=== PATIENT | male | born 1960 | race Caucasian/White ===

== ENCOUNTER 2019-08-26 10:19 | Inpatient (IN) | payer MEDICARE, SELFPAY ==
[2019-08-26 10:20] VITALS: BP 125/87; PULSE 97; RESP 18; TEMP 36.8; O2SAT 98; BMI 32.3
--- NOTE | 2019-08-26 10:39 | EKG12_ITS ---
Test Reason : SOB Blood Pressure : / mmHG Vent. Rate : 072 BPM Atrial Rate : 072 BPM P-R Int : 176 ms QRS Dur : 086 ms QT Int : 410 ms P-R-T Axes : 044 040 021 degrees QTc Int : 448 ms Normal sinus rhythm with sinus arrhythmia Nonspecific ST & T Wave Abnormality Abnormal ECG Confirmed by DEANDRA MCINTOSH, LIONEL ([id number]), commissioning editor TALAT WILLIAM ([id number]) on 08/31/2019 11:15:50 AM Referred By: DC Confirmed By:LIONEL LIRIANO MD
[2019-08-26 11:06] LABS: Absolute Lymphocyte Count 0.93 X10^3/uL (0.83-4.51); Absolute Neutrophil Count 9.5 X10^3/uL (2.0-7.7); Basophil# 0.02 X10^3/uL; Basophil% 0.2 % (0-1); Lymphocyte # 0.93 X10^3/ul (4.0); Lymphocyte % 8.5 % (19-41); Mean Corp Hgb Conc 34.1 g/dL (32-36); Mean Corpuscular Hgb 29.3 pg (27.0-32.0); Mean Corpuscular Volume 85.9 fL (80-94); Monocyte# 0.46 X10^3/uL; Monocyte% 4.2 % (0-10); NRBC Flagged by Analyzer 0 % (0-5); Neutrophil % 86.3 % (47-70); Platelet Count 320 K/mm3 (150-450); RBC Distribution Width CV 12.8 % (11.6-14.6); RBC Distribution Width SD 39.6 fl (35.1-43.9); Red Blood Count 5.12 M/mm3 (4.6-6.2)
[2019-08-26] MEDS: Ondansetron 4 MG/2 ML Vial IV (11:06)
[2019-08-26] MEDS: Ketorolac 15 MG/ML Vial IV (11:06)
[2019-08-26] MEDS: 0.9% Normal Saline 1,000 ML 1000 ML IV (11:06)
--- NOTE | 2019-08-26 11:21 | RAD_ITS ---
STUDY: X-RAY CHEST REASON FOR EXAM: Male, 58 years old. SOB, LOST TASTE AND SMELL, CHILLS DIARRHEA TECHNIQUE: Single AP portable view of the chest. COMPARISON: None. FINDINGS: The lungs are clear and expanded. There is no demonstrated pleural abnormality. Normal size heart. Normal mediastinum and keturah. Normal visualized pulmonary arteries. Normal visualized aortic arch and descending thoracic aorta. Normal visualized thoracic spine. Normal visualized ribs, clavicles, and shoulders. There is no demonstrated abnormality of the visualized soft tissue structures of the upper abdomen. RAD/Chest 1 View (Portable) IMPRESSION: No acute pulmonary process Electronically Signed: Nick St MD at 11:43 EDT , Service support ,
[2019-08-26 11:25] LABS: AST(SGOT) 14 U/L (15-37); Alanine Aminotransfer ALT/SGPT 19 U/L (16-61); Alkaline Phosphatase 104 U/L (45-117); Anion Gap 10 (5-15); BUN 14 mg/dL (7-18); BUN/Creat Ratio 12.8 RATIO (10-20); Calcium,Total 9.5 mg/dL (8.5-10.1); Chloride 105 mmol/L (98-107); Creatinine, Serum 1.09 mg/dL (0.70-1.30); EST Glomerular Filtration Rate 73 mL/min (>60); Est Glom Filt Rate - Afr Amer 88 mL/min (>60); Estimated Creatinine Clearance 65.04 ml/min; Glucose 140 mg/dL (74-106); Potassium 3.5 mmol/L (3.5-5.1); Sodium Level 138 mmol/L (136-145)
--- NOTE | 2019-08-26 12:21 | ED.DCSUM_ITS ---
- ER Visit Summary Date of Service: 08/26/19 Chief Complaint: Sick History of Present Illness: The patient is a 58 M with subjective fever, chills, sneezing, cough, shortness of breath, diarrhea, and change in taste and smell. Symptoms started yesterday. No known coronavirus exposure. He does have a hist ory of pneumonia and required a ventilator for this in the past. No other lung disease. No heart disease or liver disease. No immune compromise. No recent antibiotics or hospitalization. No history of C. difficile. No bleeding. Physical Examination: Afebrile and vital signs unremarkable. Patient alert and oriented. No acute distress. Heart regular. No respiratory distress. Skin appears normal. Test Results: EKG showed sinus rhythm at a rate of [address] and T wave changes. CBC normal. CMP unremarkable. Troponin normal. COVID test is pending. Chest x-ray showed nothing acute. Emergency Department Course and Treatment: Patient had coronavirus precautions. He was monitored. He did not require oxygen. He was treated with IV fluids, Toradol, Zofran. Work-up was unremarkable and/or reassuring. His symptoms are consistent with COVID-19. Testing results are pending. Patient will maintain COVID precautions. Return for any new or worsening issues, shortness of breath, cyanosis, confusion, or any other concerns. He was prescribed Zofran and Imodium. He may use [id number] remedies for his symptoms. Prior to discharge, the patient was complaining of increased abdominal pain. He was treated with pain medication and will check a CT abdomen and pelvis. This showed ileus versus early small bowel obstruction. No other solid organ changes. Nothing else acute. Given his symptoms and findings, contact the hospitalist to admit. Treatment Plan: As above Disposition: Admit Impression: Suspected COVID-19 infection, abdominal pain This note was generated with [employer] dictation software. It may contain incorrect words, spelling, and punctuation that were not noted in review of the chart prior to signing ED Disposition - Plan for ED Patient: Instructions: ED Diarrhea Viral Prescriptions: Loperamide [Imodium] 2 mg PO Q2H PRN PRN #20 cap PRN Reason: Diarrhea Prescription Printed Benzonatate [Tessalon Perle] 100 mg PO 4X/DAY PRN PRN #20 cap PRN Reason: Cough Prescription Printed Referrals: Bebo Cole MD [Primary Care Provider] -
--- NOTE | 2019-08-26 12:25 | ED.DEP ---
ED Disposition - Plan for ED Patient: Instructions: ED Diarrhea Viral Prescriptions: Loperamide [Imodium] 2 mg PO Q2H PRN PRN #20 cap PRN Reason: Diarrhea Prescription Printed Benzonatate [Tessalon Perle] 100 mg PO 4X/DAY PRN PRN #20 cap PRN Reason: Cough Prescription Printed Referrals: Bebo Cole MD [Primary Care Provider] -
--- NOTE | 2019-08-26 12:45 | CT_ITS ---
STUDY: CT ABDOMEN AND PELVIS WITHOUT CONTRAST REASON FOR EXAM: Male, 58 years old. FEVER, COUGH, SOB, LOST TASTE/SMELL, CHILLS, DIARRHEA RADIATION DOSAGE (If Supplied By Facility): CTDIvol = ( 17.775 ) mGy, DLP = ( 1013.39 ) mGycm TECHNIQUE: Transaxial images were obtained from the dome of the diaphragm to the symphysis pubis without oral contrast, and without intravenous contrast. Sagittal and coronal images were reconstructed. Individualized dose optimization techniques were used for this CT. COMPARISON: None. FINDINGS: The visualized lung bases are unremarkable. The visualized portions of the heart are within normal limits. Normal liver. There are multiple gallstones. Normal spleen. Normal pancreas. Normal bilateral adrenal glands. Normal right kidney. Normal left kidney. Normal visualized stomach. Multiple distended fluid-filled small bowel loops are noted consistent with ileus/early obstruction. A transition point is not clearly identified but appears to be within the jejunum. Normal colon. There is non-visualization of the appendix. There is diffuse atherosclerotic calcification of the abdominal aorta, without a demonstrated aneurysm. Normal inferior vena cava. Normal retroperitoneum. Normal urinary bladder. There are prostatic calcifications. There is a small umbilical hernia containing fat. There are diffuse degenerative changes of the visualized lumbar spine, and pelvis. CT/Abdomen/Pelvis W IV Cont ONLY IMPRESSION: Borderline distended fluid-filled small bowel loops and air-fluid levels consistent with ileus/early obstruction. Transition point not clearly identified but appears to be within the jejunum No suspicious solid organ abnormality No free intraperitoneal fluid, air, or suspicious adenopathy Electronically Signed: Nick St MD at 13:16 EDT , Service support ,
[2019-08-26] MEDS: HYDROmorphone 1 MG/ML Syringe IV (12:50)
[2019-08-26 13:24] VITALS: BP 167/84; PULSE 59; RESP 18; O2SAT 99
[2019-08-26] MEDS: Morphine 4 MG/ML Syringe IV (14:15)
[2019-08-26 14:17] VITALS: BP 158/83; PULSE 67; RESP 18; TEMP 36.7; O2SAT 98
[2019-08-26 15:10] VITALS: BP 145/86; PULSE 56; RESP 16; TEMP 37.4; O2SAT 100
--- NOTE | 2019-08-26 15:12 | PCM.HP.STD ---
<Mason Whitlock - Last Filed: 08/26/19 15:12> Problem List (1) Viral URI Status: Acute (2) Ileus Status: Acute (3) Fibromyalgia Status: Chronic History of Present Illness Date of Admission: 08/26/19 Chief Complaint: malaise The patient is a 58 year old M with pmhx of fibromyalgia who presents with multiple complaints suspicious for covid19. The patient started feeling unwell yesterday and began having sinus congestion, non productive cough, SOB, sneezing, nausea with no vomiting, diarrhea, abdominal pain, loss of taste and smell, and hot and cold flashes. The patient denies sick contacts. He had no symptoms prior to yesterday. He came to the ER and despite his SOB has no hypoxia and no infiltrate on cxr. He has abdominal pain and CT abd shows ileus. He has had multiple liquid only BMs. He will be admitted for suspected ileus. He does not smoke cigarettes but does smoke medical marijuana for pain for fibromyalgia.[] Past Medical History Past Medical History (Chronic Problems): Chronic Problems Fibromyalgia (Chronic) Allergies levofloxacin [From Levaquin] Adverse Reaction (Verified 08/26/19 11:08) Other Home Medications: Ambulatory Orders Medication Instructions Recorded Pregabalin [Lyrica] 300 mg PO BID 04/16/13 Psychiatric History: No pertinent psych hx Lives: With Family Smoking Status: Never smoker Tobacco Use: Non-smoker Alcohol: None Drugs: Marijuana Review of Systems Constitutional: Reports: Chills, Fever, Malaise. Denies: Weight Change HEENT: Reports: Sinus Congestion, - - loss of taste and smell. Denies: Head Aches, Sinus Drainage Cardiovascular: Denies: Chest Pain, Heaviness, Light Headedness, Palpitations Respiratory: Reports: Cough, Shortness of Breath, Shortness of breath at rest, Shortness of breath upon exertion. Denies: Hemoptysis, Sputum production, Wheezing Gastrointestinal: Reports: Abdominal Pain, Diarrhea, Nausea. Denies: Vomiting Genitourinary: Denies: Dysuria Musculoskeletal: Denies: Joint Pain, Joint Tenderness Skin: Denies: Rash, Wounds Neurological: Denies: Numbness, Tingling, Focal weakness Psychiatric: Denies: Anxiety, Depression, Homicidal Ideations, Suicidal Ideations Hematologic/ Lymphatic: Denies: Easy Bruising, Easy Bleeding VTE Information - Inpt Only VTE Present on Admission: No VTE Mechan Device Prophylaxis: None VTE Pharm Prophylaxis ordered?: Yes Patient Problems: Active and Suspected Problems Viral URI (Acute) Ileus (Acute) - Physical Exam Vitals/I&O's: Vital Signs Temp Pulse Resp BP Pulse Ox 98.1 F 67 18 158/83 H 98 08/26/19 14:17 08/26/19 14:17 08/26/19 14:17 08/26/19 14:17 08/26/19 14:17 Oxygen Delivery Method Room Air Weight: 200 lb Body Mass Index (BMI) 32.3 Intake and Output for Last 24 Hours 08/24/19 08/25/19 08/26/19 23:59 23:59 23:59 Intake Total 1000 / 1000 Balance 1000 / 1000 General: Alert, Oriented x3, Cooperative HEENT: Atraumatic, PERRLA, EOMI, Normocephalic Neck: Supple, No JVD, Negative Carotid Bruits Lungs: Clear to auscultation, Normal air movement Cardiovascular: Regular rate, No murmurs Abdomen: Soft, Non Tender, Bowel Sounds Not Present, Tender Extremities: No edema, Capillary Refill Less than 3 Seconds Skin: No rashes, No breakdown Musculoskeletal: No Tenderness to Palpation of Joints or Extremities Neurological: Cranial nerves II-XII grossly intact Psych/Mental Status: Normal Affect, Appropriate Laboratory Results 08/26/19 10:33: WBC 11.0, RBC 5.12, Hgb 15.0, Hct 44.0, MCV 85.9, MCH 29.3, MCHC 34.1, RDW Std Deviation 39.6, RDW Coeff of Francisco 12.8, Plt Count 320, MPV 9.0, Immature Gran % (Auto) 0.800, Neut % (Auto) 86.3 H, Lymph % (Auto) 8.5 L, Millard % (Auto) 4.2, Eos % (Auto) 0.0, Baso % (Auto) 0.2, Absolute Neuts (auto) 9.5 H, Absolute Lymphs (auto) 0.93, Nucleated RBC % 0 08/26/19 10:33: Sodium 138, Potassium 3.5, Chloride 105, Carbon Dioxide 23.0, Anion Gap 10, BUN 14, Creatinine 1.09, Estim Creat Clear Calc 65.04, Est GFR (MDRD) Af Amer 88, Est GFR (MDRD) Non-Af 73, BUN/Creatinine Ratio 12.8, Glucose 140 H, Calcium 9.5, Total Bilirubin 0.90, AST 14 L, ALT 19, Alkaline Phosphatase 104, Troponin I < 0.015, Total Protein 8.0, Albumin 4.0, Globulin 4.0, Albumin/Globulin Ratio 1.0 08/26/19 10:50: COVID-19 (BRY) Pending Current Medications Iopamidol (Contrast Allergy Check) 0 ml IV X1 HOANG Assessment/Plan All Active Problems Viral URI (Acute) Ileus (Acute) 1. Ileus - NPO. AM KUB. IV fluids. Anti emetics. 2. Covid 19 - rapid test pending however presumed + due to symptomology. no fever/leukcoytosis. No hypoxia tho he c/o sob. monitor overnight. supportive measures. cohort pt with covid precautions. 3. Fibromyalgia - hold orals. DVT ppx: lovenox This patient was seen by Mason Whitlock PA-C under the supervision of Dr. Brito. <Rebekah Brito - Last Filed: 08/26/19 19:48> History of Present Illness The patient is a 58 year old M [] Past Medical History Allergies levofloxacin [From Levaquin] Adverse Reaction (Verified 08/26/19 11:08) Other - Physical Exam Vitals/I&O's: Vital Signs Temp Pulse Resp BP Pulse Ox 99.3 F H 56 L 16 145/86 H 100 08/26/19 15:10 08/26/19 15:10 08/26/19 15:10 08/26/19 15:10 08/26/19 15:10 Oxygen Delivery Method Room Air Weight: 87.1 kg Body Mass Index (BMI) 30.9 Intake and Output for Last 24 Hours 08/24/19 08/25/19 08/26/19 23:59 23:59 23:59 Intake Total 1720 / 1720 Balance 1720 / 1720 Laboratory Results 08/26/19 10:33: WBC 11.0, RBC 5.12, Hgb 15.0, Hct 44.0, MCV 85.9, MCH 29.3, MCHC 34.1, RDW Std Deviation 39.6, RDW Coeff of Francisco 12.8, Plt Count 320, MPV 9.0, Immature Gran % (Auto) 0.800, Neut % (Auto) 86.3 H, Lymph % (Auto) 8.5 L, Millard % (Auto) 4.2, Eos % (Auto) 0.0, Baso % (Auto) 0.2, Absolute Neuts (auto) 9.5 H, Absolute Lymphs (auto) 0.93, Nucleated RBC % 0 08/26/19 10:33: Sodium 138, Potassium 3.5, Chloride 105, Carbon Dioxide 23.0, Anion Gap 10, BUN 14, Creatinine 1.09, Estim Creat Clear Calc 65.04, Est GFR (MDRD) Af Amer 88, Est GFR (MDRD) Non-Af 73, BUN/Creatinine Ratio 12.8, Glucose 140 H, Calcium 9.5, Total Bilirubin 0.90, AST 14 L, ALT 19, Alkaline Phosphatase 104, Troponin I < 0.015, Total Protein 8.0, Albumin 4.0, Globulin 4.0, Albumin/Globulin Ratio 1.0 08/26/19 10:50: COVID-19 (BRY) Pending 08/26/19 10:55: B-Natriuretic Peptide 15.4 08/26/19 17:30: Fibrinogen 500 H, D-Dimer Quant (PE/DVT) 0.79 H* 08/26/19 17:30: Lactate Dehydrogenase 136, Total Creatine Kinase 53, Troponin I < 0.015, C-React Prot Ext Range 8.72 H 08/26/19 17:30: Lactic Acid Cancelled 08/26/19 17:30: Procalcitonin Pending Current Medications Bisacodyl (Dulcolax) 10 mg RECTAL DAILY HOANG Enoxaparin Sodium (Lovenox) 30 mg SC BID HOANG Sodium Chloride () 250 mls @ 15 mls/hr IV .[id number] PRN PRN Reason: Saline Flush Sodium Chloride () 250 mls @ 15 mls/hr IV .[id number] PRN PRN Reason: Additional IVPB Infusion Polyethylene Glycol (Miralax) 17 gm PO DAILY HOANG Pregabalin (Lyrica) 300 mg PO BID HOANG Senna/Docusate Sodium (Senokot-S, Cathie-Colace) 2 tablet PO BID PRN PRN PRN Reason: CONSTIPATION Sodium Chloride () 10 - 40 ml IV UD PRN PRN Reason: SALINE FLUSH Assessment/Plan This patient was seen in conjunction with FLOYD De Leon. I have independently interviewed and examined the patient and reviewed pertinent historical, laboratory, and other data. Please refer to FLOYD De Leon note for his patient's presentation, findings, and recommendations. I have reviewed and his note and concur with his documentation 58-year-old male with past medical history of fibromyalgia, chronic neuropathy, status post implanted morphine pump who comes in with complaints of fever, chills, diarrhea, loss of taste and smell. Patient denies any sick contacts. He lives with his mother. He admits to having some sinus congestion, cough, shortness of breath. His work-up in the ED was significant for abdominal discomfort in which CT of the abdomen with multiple gallstones, multiple distended fluid-filled small bowel loops consistent with ileus/early obstruction. Patient however had a bowel movement when he was admitted to the floor. At time of being seen, he stated that he was feeling a little better. Physical Exam: Gen: Comfortable, not pale, not jaundiced CVS:HS I +II, regular, no murmurs RESP: Clinically clear to auscultation GI: BS present and normal, soft, nontender, no palpable organs EXT:No edema ASSESSMENT: 1. Ileus secondary to chronic narcotic use 2. Possible COVID-19 infection 3. Fibromyalgia/chronic pain syndrome Plan: Continue in COVID isolation precautions Start on clear liquid diet and advance diet as tolerated Start on a bowel regimen Continue on home pain regimen Would avoid use of narcotics in the hospital as patient has a morphine pump already Inpatient E&M: 93920 Init Hosp L2
[2019-08-26 15:34] VITALS: BMI 30.9; BMI 31.0
[2019-08-26 16:15] LABS: BNP,B-Type NATRIURETIC PEPTIDE 15.4 pg/mL (0-100)
[2019-08-26 18:27] LABS: Fibrinogen 500 mg/dl (203-444)
[2019-08-26 18:31] LABS: CPK Total, Creatine Kinase 53 U/L (39-308); CRP 8.72 mg/L (0.0-3.0); LDH 136 U/L (87-241)
[2019-08-26 19:07] LABS: D-Dimer Quantitative (DVT/PE) 0.79 FEU/ug/m (0.27-0.49)
[2019-08-26] MEDS: Polyethylene Glycol 3350 17 GM PACKET PO (19:40)
[2019-08-26] MEDS: Senna/Docusate Sodium 1 Tablet 2 TABLET PO (19:40)
[2019-08-26] MEDS: 0.9% Saline Lock 10 ML Syringe IV (19:41)
[2019-08-26] MEDS: Bisacodyl 10 MG Suppository RECTAL (19:41)
[2019-08-26 19:45] VITALS: BP 146/82; PULSE 74; RESP 15; TEMP 37.7; O2SAT 99
[2019-08-26 20:31] LABS: Lactic Acid 3.3 mmol/L (0.4-1.9)
--- NOTE | 2019-08-26 20:44 | PCM.PN.BLA ---
Progress Note Notified of lactic acid of 3.3 of probable covid patient. Trend. Procalcitonin is pending. STROKE Vital Signs/Narrative: Vital Signs Temp Pulse Resp BP Pulse Ox 08/26/19 19:45 99.8 F H 74 15 146/82 H 99
[2019-08-26 20:49] LABS: Procalcitonin < 0.04 ng/mL (0.00-0.09)
[2019-08-26] MEDS: Pregabalin 75 MG Capsule 300 MG PO (21:11)
[2019-08-26] MEDS: Enoxaparin 30 MG/0.3 ML Syringe SC (21:11)
[2019-08-26 23:58] LABS: Reflex Lactate? Y
[2019-08-27] VITALS: BP 149/82; PULSE 60; RESP 16; TEMP 37.2; O2SAT 98
[2019-08-27 00:36] LABS: Lactic Acid 2.6 mmol/L (0.4-1.9)
[2019-08-27] MEDS: Acetaminophen 325 MG Tablet 650 MG PO ×2 (02:40→09:06)
[2019-08-27 04:40] VITALS: BP 134/86; PULSE 56; RESP 17; TEMP 36.9; O2SAT 95
[2019-08-27 04:51] LABS: Absolute Lymphocyte Count 1.56 X10^3/uL (0.83-4.51); Absolute Neutrophil Count 10.9 X10^3/uL (2.0-7.7); Basophil# 0.02 X10^3/uL; Basophil% 0.1 % (0-1); Eosinophil# 0.01 X10^3/uL; Eosinophils% 0.1 % (0-5); Hematocrit 38.1 % (40-54); Hemoglobin 12.8 g/dL (13.0-16.5); Lymphocyte # 1.56 X10^3/ul (4.0); Lymphocyte % 11.5 % (19-41); Mean Corp Hgb Conc 33.6 g/dL (32-36); Mean Corpuscular Hgb 28.5 pg (27.0-32.0); Mean Corpuscular Volume 84.9 fL (80-94); Mean Platelet Vol. 9.4 fl (6.2-12.0); Monocyte# 0.94 X10^3/uL; Monocyte% 6.9 % (0-10); NRBC Flagged by Analyzer 0 % (0-5); Neutrophil % 80.7 % (47-70); Platelet Count 317 K/mm3 (150-450); RBC Distribution Width CV 12.9 % (11.6-14.6); RBC Distribution Width SD 39.8 fl (35.1-43.9); Red Blood Count 4.49 M/mm3 (4.6-6.2); White Blood Count 13.5 K/mm3 (4.4-11.0)
[2019-08-27 05:04] LABS: Anion Gap 8 (5-15); BUN 12 mg/dL (7-18); Calcium,Total 8.8 mg/dL (8.5-10.1); Chloride 109 mmol/L (98-107); Creatinine, Serum 0.86 mg/dL (0.70-1.30); EST Glomerular Filtration Rate 96 mL/min (>60); Est Glom Filt Rate - Afr Amer 116 mL/min (>60); Estimated Creatinine Clearance 82.43 ml/min; Glucose 119 mg/dL (74-106); Magnesium 2.2 mg/dL (1.6-2.6); Potassium 3.1 mmol/L (3.5-5.1); Sodium Level 140 mmol/L (136-145)
[2019-08-27] MEDS: Pregabalin 75 MG Capsule 300 MG PO ×2 (09:06→21:49)
[2019-08-27] MEDS: Enoxaparin 30 MG/0.3 ML Syringe SC ×2 (09:08→21:49)
[2019-08-27 09:18] VITALS: BP 148/101; PULSE 53; RESP 14; TEMP 36.3; O2SAT 96
--- NOTE | 2019-08-27 11:04 | PN_ITS ---
Patient Problems: Active and Suspected Problems Viral URI (Acute) Ileus (Acute) Subjective: Since at midnight on , he has been having myalgias, restless legs, nausea, abdominal cramps, rhinitis since. He said he tried to bolus his pump and had an interface on his remote that he hadn't seen before. Vitals/I&O's: Vital Signs Temp Pulse Resp BP Pulse Ox 36.3 C L 53 L 14 148/101 H 96 08/27/19 09:18 08/27/19 09:18 08/27/19 09:18 08/27/19 09:18 08/27/19 09:18 Oxygen Delivery Method Room Air Weight: 87.1 kg Body Mass Index (BMI) 30.9 Intake and Output for Last 24 Hours 08/25/19 08/26/19 08/27/19 23:59 23:59 23:59 Intake Total 1720 / 2140 660 / 660 Balance 1720 / 2140 660 / 660 General: Alert, No apparent distress HEENT: Atraumatic, Normocephalic Oral: Moist Mucosa, No Gingival or Mucosal Lesions/ Ulcerations Neck: No Nodes, Thyroid Normal Size and Texture Lungs: Clear to auscultation, Normal air movement, No rhonchi, No wheeze, No rales Cardiovascular: Regular rate, Regular Rhythm, Normal S1, Normal S2, No murmurs Abdomen: Bowel Sounds Present, Soft, Non Tender, Non-Distended, No Hepato-splenomegaly Extremities: No edema, No Calf Tenderness Skin: No rashes, No breakdown Psych/Mental Status: Normal Affect, Appropriate Microbiology Past 72 Hours 08/26/19 19:10 Mucosa - Nasopharyngeal Respiratory Panel (PCR) - Final Laboratory Results 08/26/19 10:33: WBC 11.0, RBC 5.12, Hgb 15.0, Hct 44.0, MCV 85.9, MCH 29.3, MCHC 34.1, RDW Std Deviation 39.6, RDW Coeff of Francisco 12.8, Plt Count 320, MPV 9.0, Immature Gran % (Auto) 0.800, Neut % (Auto) 86.3 H, Lymph % (Auto) 8.5 L, [place] % (Auto) 4.2, Eos % (Auto) 0.0, Baso % (Auto) 0.2, Absolute Neuts (auto) 9.5 H, Absolute Lymphs (auto) 0.93, Nucleated RBC % 0 08/26/19 10:33: Sodium 138, Potassium 3.5, Chloride 105, Carbon Dioxide 23.0, Anion Gap 10, BUN 14, Creatinine 1.09, Estim Creat Clear Calc 65.04, Est GFR (MDRD) Af Amer 88, Est GFR (MDRD) Non-Af 73, BUN/Creatinine Ratio 12.8, Glucose 140 H, Calcium 9.5, Total Bilirubin 0.90, AST 14 L, ALT 19, Alkaline Phosphatase 104, Troponin I < 0.015, Total Protein 8.0, Albumin 4.0, Globulin 4.0, Albumin/Globulin Ratio 1.0 08/26/19 10:50: COVID-19 (BRY) Pending 08/26/19 10:55: B-Natriuretic Peptide 15.4 08/26/19 17:30: Fibrinogen 500 H, D-Dimer Quant (PE/DVT) 0.79 H* 08/26/19 17:30: Lactate Dehydrogenase 136, Total Creatine Kinase 53, Troponin I < 0.015, C-React Prot Ext Range 8.72 H 08/26/19 17:30: Lactic Acid Cancelled 08/26/19 17:30: Procalcitonin < 0.04 08/26/19 19:50: Lactic Acid 3.3 H* 08/26/19 23:55: Lactic Acid 2.6 H* 08/27/19 04:35: WBC 13.5 H, RBC 4.49 L, Hgb 12.8 L, Hct 38.1 L, MCV 84.9, MCH 28.5, MCHC 33.6, RDW Std Deviation 39.8, RDW Coeff of Francisco 12.9, Plt Count 317, MPV 9.4, Immature Gran % (Auto) 0.700, Neut % (Auto) 80.7 H, Lymph % (Auto) 11.5 L, [place] % (Auto) 6.9, Eos % (Auto) 0.1, Baso % (Auto) 0.1, Absolute Neuts (auto) 10.9 H, Absolute Lymphs (auto) 1.56, Nucleated RBC % 0 08/27/19 04:35: Sodium 140, Potassium 3.1 L, Chloride 109 H, Carbon Dioxide 23.0, Anion Gap 8, BUN 12, Creatinine 0.86, Estim Creat Clear Calc 82.43, Est GFR (MDRD) Af Amer 116, Est GFR (MDRD) Non-Af 96, BUN/Creatinine Ratio 14.0, Glucose 119 H, Calcium 8.8, Magnesium 2.2 Current Medications Acetaminophen (Tylenol) 650 mg PO Q6H PRN PRN PRN Reason: Pain Score 1-10/10 Last Admin: 08/27/19 09:06 Dose: 650 mg Documented by: Bisacodyl (Dulcolax) 10 mg RECTAL DAILY [facility] Last Admin: 08/27/19 09:07 Dose: Not Given Documented by: Enoxaparin Sodium (Lovenox) 30 mg SC BID [facility] Last Admin: 08/27/19 09:08 Dose: 30 mg Documented by: Sodium Chloride () 250 mls @ 15 mls/hr IV .[id number] PRN PRN Reason: Saline Flush Sodium Chloride () 250 mls @ 15 mls/hr IV .[id number] PRN PRN Reason: Additional IVPB Infusion Polyethylene Glycol (Miralax) 17 gm PO DAILY [facility] Last Admin: 08/27/19 09:08 Dose: Not Given Documented by: Pregabalin (Lyrica) 300 mg PO BID [facility] Last Admin: 08/27/19 09:06 Dose: 300 mg Documented by: Senna/Docusate Sodium (Senokot-S, Cathie-Colace) 2 tablet PO BID PRN PRN PRN Reason: CONSTIPATION Last Admin: 08/26/19 19:40 Dose: 2 tablet Documented by: Sodium Chloride () 10 - 40 ml IV UD PRN PRN Reason: SALINE FLUSH Last Admin: 08/26/19 19:41 Dose: 40 ml Documented by: STROKE Vital Signs/Narrative: Vital Signs Temp Pulse Resp BP Pulse Ox 08/27/19 09:18 36.3 C L 53 L 14 148/101 H 96 Medical Necessity - Tobacco Use Smoking Status: Never smoker Tobacco Use: Non-smoker Assessment/Plan All Active Problems Viral URI (Acute) Ileus (Acute) 1. Acute opiate withdrawal * suspected. It is unclear if his pump is malfunctioning or not. * DW his pain mgmt physician, Dr. Atkins, who said his pump has malfunctioned before. She will have the rep come in and evaluate. * Patient has a remote. He will have someone bring it in. * Given the anosmia, leukopenia, elevated D-dimer, COVID test performed and results pending 2. Chronic pain * on morphine pump * evaluation pending 3. VTE prophylaxis: LMWH Greater than 40 minutes of which greater than 50% of the time was coordinating care. Inpatient E&M: [id number] [place] [id number]
[2019-08-27] MEDS: Ondansetron 4 MG/2 ML Vial IV (11:31)
--- NOTE | 2019-08-27 12:32 | CASEMGMT ---
Social Work - Assessment Phone call placed to pt room as pt is currently in Covid precautions. SW introduced self and role of SW. Pt is A&O x3, moaning throughout conversation due to pain but willing to speak with SW. Pt lives with elderly parents in two story home and is independent with care needs. Pt demographics confirmed. PCP: Dr. Cheek, pt is not 100% sure if this is the correct physician as his physician has retired and he has only seen new PCP a few times. Specialists: Dr. Atkins, pain management out of [place]. Pharmacy: [facility] NOK: Leona Telles daughter listed. Pt lives with elderly parents who assist pt if needed. LW/HCPOA: No, pt denied interest in additional information Living arrangements: Pt lives in 2 story home with living quarters on the second floor. Pt stating he has no difficulty negotiating the flight of stairs. Pt lives with elderly parents and pt states, they help me more than I help them ADLS: pt states he is independent with ADLS and IADLS Tranportation: pt is able to drive and states his mother will be able to transport home DME: walking stick that he uses occasionally HHC/SNF: pt has never has previous HHC or SNF. Pt does state that a Nurse from [employer], the company that provided pain pump, comes to his house about every 40 days or so to fill the pain pump. Pt complaining that he is having trouble swallowing and does not feel he can return home until this resolves. Phone call to pt nurse and RN is aware of pt concerns. Pt denies need for SNF or HHC at time of discharge. MARYLOU Spears updated on pt dispostion. Plan: Home with parents, no needs. JOSEPH Johnson
--- NOTE | 2019-08-27 14:31 | PCM.HP.ID ---
Problem List (1) Suspected 2019-nCoV infection Status: Acute Reason for Consult: suspected covid Consulted by: Dr. Kent History of Present Illness: The patient is a 58 year old M with implanted pain pump, presented 08/25 with 2 days of n/v, headache, fever, chills, cough, dyspnea, diffuse muscle aches, sore throat, and change in taste. No sick contacts. Had trouble sleeping due to severe body aches. Admitted here, lactate elevated, feeling a little better. Full ROS performed and neg except as noted above. - Medical History Past Medical History (Chronic Problems): Chronic Problems Fibromyalgia (Chronic) Allergies/Adverse Reactions: Allergies levofloxacin [From Levaquin] Adverse Reaction (Verified 08/26/19 11:08) Other Home Medications: Ambulatory Orders Medication Instructions Recorded Pregabalin [Lyrica] 300 mg PO BID 04/16/13 - Social History Tobacco Use: non-smoker Vital Signs Temp Pulse Resp BP Pulse Ox 97.4 F L 53 L 14 148/101 H 96 08/27/19 09:18 08/27/19 09:18 08/27/19 09:18 08/27/19 09:18 08/27/19 09:18 Oxygen Delivery Method Room Air Weight: 87.1 kg Body Mass Index (BMI) 30.9 Microbiology Past 72 Hours 08/26/19 19:10 Respiratory Panel (PCR) - Final Mucosa - Nasopharyngeal Laboratory Tests Past 24 Hrs 08/26/19 08/26/19 08/26/19 10:55 17:30 17:30 WBC RBC Hgb Hct MCV MCH MCHC RDW Std Deviation RDW Coeff of Francisco Plt Count MPV Immature Gran % (Auto) Neut % (Auto) Lymph % (Auto) [place] % (Auto) Eos % (Auto) Baso % (Auto) Absolute Neuts (auto) Absolute Lymphs (auto) Nucleated RBC % Fibrinogen 500 H D-Dimer Quant (PE/DVT) 0.79 H* Sodium Potassium Chloride Carbon Dioxide Anion Gap BUN Creatinine Estim Creat Clear Calc Est GFR (MDRD) Af Amer Est GFR (MDRD) Non-Af BUN/Creatinine Ratio Glucose Lactic Acid Calcium Magnesium Lactate Dehydrogenase 136 Total Creatine Kinase 53 Troponin I < 0.015 C-React Prot Ext Range 8.72 H B-Natriuretic Peptide 15.4 Procalcitonin 08/26/19 08/26/19 08/26/19 17:30 17:30 19:50 WBC RBC Hgb Hct MCV MCH MCHC RDW Std Deviation RDW Coeff of Francisco Plt Count MPV Immature Gran % (Auto) Neut % (Auto) Lymph % (Auto) [place] % (Auto) Eos % (Auto) Baso % (Auto) Absolute Neuts (auto) Absolute Lymphs (auto) Nucleated RBC % Fibrinogen D-Dimer Quant (PE/DVT) Sodium Potassium Chloride Carbon Dioxide Anion Gap BUN Creatinine Estim Creat Clear Calc Est GFR (MDRD) Af Amer Est GFR (MDRD) Non-Af BUN/Creatinine Ratio Glucose Lactic Acid Cancelled 3.3 H* Calcium Magnesium Lactate Dehydrogenase Total Creatine Kinase Troponin I C-React Prot Ext Range B-Natriuretic Peptide Procalcitonin < 0.04 08/26/19 08/27/19 08/27/19 23:55 04:35 04:35 WBC 13.5 H RBC 4.49 L Hgb 12.8 L Hct 38.1 L MCV 84.9 MCH 28.5 MCHC 33.6 RDW Std Deviation 39.8 RDW Coeff of Francisco 12.9 Plt Count 317 MPV 9.4 Immature Gran % (Auto) 0.700 Neut % (Auto) 80.7 H Lymph % (Auto) 11.5 L [place] % (Auto) 6.9 Eos % (Auto) 0.1 Baso % (Auto) 0.1 Absolute Neuts (auto) 10.9 H Absolute Lymphs (auto) 1.56 Nucleated RBC % 0 Fibrinogen D-Dimer Quant (PE/DVT) Sodium 140 Potassium 3.1 L Chloride 109 H Carbon Dioxide 23.0 Anion Gap 8 BUN 12 Creatinine 0.86 Estim Creat Clear Calc 82.43 Est GFR (MDRD) Af Amer 116 Est GFR (MDRD) Non-Af 96 BUN/Creatinine Ratio 14.0 Glucose 119 H Lactic Acid 2.6 H* Calcium 8.8 Magnesium 2.2 Lactate Dehydrogenase Total Creatine Kinase Troponin I C-React Prot Ext Range B-Natriuretic Peptide Procalcitonin - Other Studies Radiology: [] reviewed Other Studies: [] Route of nutrition/ use of supplements: [] Nutritional Intake: [] IV Site: [] Enriquez Catheter: [] - Physical Exam General: Alert, Oriented x3, Cooperative, No apparent distress HEENT: Atraumatic, PERRLA, EOMI Neck: Supple, No Nodes Lungs: Clear to auscultation, Normal air movement Cardiovascular: Regular rate, Regular Rhythm Abdomen: Soft, Non Tender, Non-Distended Extremities: No edema Skin: No rashes IV Site: Peripheral, without redness Musculoskeletal: No Tenderness to Palpation of Joints or Extremities Neurological: Cranial nerves II-XII grossly intact - Assessment/Plan Antibiotics: [] Assessment/Plan: [] Active and Suspected Problems Viral URI (Acute) Ileus (Acute) suspected covid - typical symptoms. COVID pcr pending. On RA, so no need for dexamethasone at this time. On bid lovenox. D-dimer was normal. Ok for home if pain can be controlled with monitoring for worsening respiratory status. Will follow, thank you.
[2019-08-27 15:50] VITALS: BP 156/83; PULSE 60; RESP 16; TEMP 37.1; O2SAT 97
[2019-08-27] MEDS: oxyCODONE 5 MG Tablet 10 MG PO ×2 (16:43→22:56)
[2019-08-27] MEDS: Morphine 2 MG/ML Syringe IV ×3 (18:27→23:56)
[2019-08-27 20:30] VITALS: BP 137/102; PULSE 77; RESP 17; TEMP 37.7; O2SAT 99
[2019-08-27] MEDS: 0.9% Saline Lock 10 ML Syringe IV ×2 (21:49→23:56)
[2019-08-28 02:53] VITALS: BP 149/83; PULSE 51; RESP 16; TEMP 36.8; O2SAT 98
[2019-08-28] MEDS: Morphine 2 MG/ML Syringe IV ×3 (02:57→09:43)
[2019-08-28] MEDS: 0.9% Saline Lock 10 ML Syringe IV ×3 (02:57→09:43)
[2019-08-28] MEDS: oxyCODONE 5 MG Tablet 10 MG PO ×2 (04:08→08:04)
[2019-08-28 07:49] LABS: Anion Gap 8 (5-15); BUN 13 mg/dL (7-18); BUN/Creat Ratio 14.9 RATIO (10-20); Calcium,Total 9.3 mg/dL (8.5-10.1); Chloride 109 mmol/L (98-107); Creatinine, Serum 0.87 mg/dL (0.70-1.30); EST Glomerular Filtration Rate 95 mL/min (>60); Est Glom Filt Rate - Afr Amer 114 mL/min (>60); Estimated Creatinine Clearance 80.46 ml/min; Glucose 112 mg/dL (74-106); Potassium 3.3 mmol/L (3.5-5.1); Sodium Level 140 mmol/L (136-145)
[2019-08-28] MEDS: Pregabalin 75 MG Capsule 300 MG PO (08:03)
[2019-08-28] MEDS: Enoxaparin 30 MG/0.3 ML Syringe SC (08:03)
[2019-08-28 08:07] VITALS: BP 142/95; PULSE 82; RESP 16; TEMP 37.1; O2SAT 98
--- NOTE | 2019-08-28 08:43 | DCINST_ITS ---
- Discharge Diagnoses Current Active Problems: Current Active and Chronic Problems Viral URI (Acute) Ileus (Acute) Fibromyalgia (Chronic) Suspected 2019-nCoV infection (Acute) You will use the following diet at home:: No restrictions Your food should be the consistency of: Regular Your liquids should be the consistency of: Regular/Thin Discharge Activity: Return to Normal Activity Call your doctor if you observe: Fever of 101 or Higher, Shortness of breath Instructions: ED Diarrhea Viral Allergies/Adverse Reactions: Allergies levofloxacin [From Levaquin] Adverse Reaction (Verified 08/26/19 11:08) Other Medications to take at Discharge Pregabalin [Lyrica] 300 mg PO BID 04/16/13 Acetaminophen [Tylenol Tablet] 650 mg PO Q6H PRN PRN tablet 08/28/19 Oxycodone [Oxyir] 10 mg PO Q4H PRN PRN 4 Days #24 tablet 08/28/19 The following prescriptions were given: Oxycodone [Oxyir] 10 mg PO Q4H PRN PRN 4 Days #24 tablet PRN Reason: Pain Score 6-10/10 Transmission Status: Sent to [facility] Primary Care Physician: Bebo Cole MD [Primary Care Provider] - Test Results: Test results from this visit will be discussed in further detail at your follow- up appointment, if applicable. Please Follow Up With: Daija Atkins DO When: next week Proposed Discharge Date: 08/28/19
--- NOTE | 2019-08-28 08:45 | PCM.DC.SUM ---
Discharge Date and Diagnosis - Problem List Patient Problems: Active and Suspected Problems Viral URI (Acute) Ileus (Acute) Suspected 2018-nCoV infection (Acute) Date of Admission: 08/26/19 Date of Discharge: 08/28/19 - Primary Discharge Diagnosis Acute Problems: Active Problems Acute opiate withdrawal Ileus - Secondary Discharge Diagnosis Chronic Problems: Chronic Problems Fibromyalgia (Chronic) Hospital Course and Treatment Imaging Results: Clinical Impression(s) from Imaging Studies Chest X-Ray 08/26/19 11:21 IMPRESSION: No acute pulmonary process Electronically Signed: Nick St MD at 11:43 EDT , Service support , Abdomen/Pelvis CT 08/26/19 12:45 IMPRESSION: Borderline distended fluid-filled small bowel loops and air-fluid levels consistent with ileus/early obstruction. Transition point not clearly identified but appears to be within the jejunum No suspicious solid organ abnormality No free intraperitoneal fluid, air, or suspicious adenopathy Electronically Signed: Nick St MD at 13:16 EDT , Service support , Operations: None Procedures: None Summary of Care Provided: The patient is a 59 year old M presents with myalgias, worsening pain, rhinitis, anosmia. Concern when patient came and was for COVID. Chest x-ray was negative and the patient was not hypoxic. Patient did have a slightly elevated d-dimer. Upon speaking with the patient he stated that symptoms began around midnight on and just got worse. Stated he tried to bolus himself with his intrathecal pump but did not hear the whirring of the machine as he normally does and that there was something that he was not familiar with on the screen of the remote which. He presented to the emergency room and underwent evaluation for COVID. So I spoke with him and spoke with his pain management doctor, Dr. Atkins, who inquired if patient had contacted his [employer] and I told her that he had not. She contacted [employer] and had come evaluate the patient. They evaluated the patient on the and stated that the pump just stopped working and stopped working about 58 hours prior to their evaluation. And so patient would need to be put on narcotics until he is able to follow-up his pain management doctor and would need to have a new pump placed. So patient will be receiving 4 days of 10 mg of oxycodone and patient will need to follow-up with Dr. Atkins of pain management as outpatient next week. Will need to have arranged for time when he can have his pump replaced. Patient was checked for COVID in the lab was sent out and is currently pending at this time. Overall, the patient appears much better today though he is still complaining of significant pain. COVID testing is pending at this time so patient advised to socially distance at home where he lives with his parents and 4 he to wear a mask around and for them to wear mascara him as well until the test comes back negative. [] Patient Problems: Active and Suspected Problems Viral URI (Acute) Ileus (Acute) Suspected 2019-nCoV infection (Acute) - Physical Exam Vitals/I&O's: Vital Signs Temp Pulse Resp BP Pulse Ox 37.1 C 82 16 142/95 H 98 08/28/19 08:07 08/28/19 08:07 08/28/19 08:07 08/28/19 08:07 08/28/19 08:07 Oxygen Delivery Method Room Air Weight: 87.1 kg Body Mass Index (BMI) 30.9 Intake and Output for Last 24 Hours 08/26/19 08/27/19 08/28/19 23:59 23:59 23:59 Intake Total 1720 / 2140 1560 / 1660 300 / 300 Balance 1720 / 2140 1560 / 1660 300 / 300 General: Alert, No apparent distress HEENT: Atraumatic, Normocephalic Oral: Moist Mucosa, No Gingival or Mucosal Lesions/ Ulcerations Neck: No Nodes, Thyroid Normal Size and Texture Lungs: Clear to auscultation, Normal air movement, No rhonchi, No wheeze, No rales Cardiovascular: Regular rate, Regular Rhythm, Normal S1, Normal S2, No murmurs Abdomen: Bowel Sounds Present, Soft, Non Tender, Non-Distended, No Hepato-splenomegaly Extremities: No edema, No Calf Tenderness Microbiology Past 72 Hours 08/26/19 19:10 Mucosa - Nasopharyngeal Respiratory Panel (PCR) - Final Laboratory Results 08/28/19 07:13: Sodium 140, Potassium 3.3 L, Chloride 109 H, Carbon Dioxide 23.0, Anion Gap 8, BUN 13, Creatinine 0.87, Estim Creat Clear Calc 80.46, Est GFR (MDRD) Af Amer 114, Est GFR (MDRD) Non-Af 95, BUN/Creatinine Ratio 14.9, Glucose 112 H, Calcium 9.3 Current Medications Acetaminophen (Tylenol) 650 mg PO Q6H PRN PRN PRN Reason: Pain Score 1-10/10 Last Admin: 08/27/19 09:06 Dose: 650 mg Documented by: Bisacodyl (Dulcolax) 10 mg RECTAL DAILY [facility] Last Admin: 08/28/19 08:03 Dose: Not Given Documented by: Enoxaparin Sodium (Lovenox) 30 mg SC BID [facility] Last Admin: 08/28/19 08:03 Dose: 30 mg Documented by: Sodium Chloride () 250 mls @ 15 mls/hr IV .[id number] PRN PRN Reason: Saline Flush Sodium Chloride () 250 mls @ 15 mls/hr IV .[id number] PRN PRN Reason: Additional IVPB Infusion Morphine Sulfate () 2 mg IV Q2H PRN PRN PRN Reason: breakthrough pain Last Admin: 08/28/19 05:34 Dose: 2 mg Documented by: Ondansetron HCl (Zofran) 4 mg IV Q6H PRN PRN PRN Reason: nausea and vomiting Last Admin: 08/27/19 11:31 Dose: 4 mg Documented by: Oxycodone HCl (Oxyir) 5 mg PO Q4H PRN PRN PRN Reason: Pain Score 4-5/10 Oxycodone HCl (Oxyir) 10 mg PO Q4H PRN PRN PRN Reason: Pain Score 6-10/10 Last Admin: 08/28/19 08:04 Dose: 10 mg Documented by: Polyethylene Glycol (Miralax) 17 gm PO DAILY [facility] Last Admin: 08/28/19 08:03 Dose: Not Given Documented by: Pregabalin (Lyrica) 300 mg PO BID [facility] Last Admin: 08/28/19 08:03 Dose: 300 mg Documented by: Senna/Docusate Sodium (Senokot-S, Cathie-Colace) 2 tablet PO BID PRN PRN PRN Reason: CONSTIPATION Last Admin: 08/26/19 19:40 Dose: 2 tablet Documented by: Sodium Chloride () 10 - 40 ml IV UD PRN PRN Reason: SALINE FLUSH Last Admin: 08/28/19 05:34 Dose: 10 ml Documented by: Discharge Diet: No Restrictions Discharge Activity: Return to Normal Activity Call your doctor if you observe: Fever of 101 or Higher, Shortness of breath Home Medications: Medications to take at Discharge Pregabalin [Lyrica] 300 mg PO BID 04/16/13 Acetaminophen [Tylenol Tablet] 650 mg PO Q6H PRN PRN tablet 08/28/19 Oxycodone [Oxyir] 10 mg PO Q4H PRN PRN 4 Days #24 tablet 08/28/19 Following Prescrptions Were Given to Patient: Oxycodone [Oxyir] 10 mg PO Q4H PRN PRN 4 Days #24 tablet PRN Reason: Pain Score 6-10/10 Transmission Status: Sent to [facility] Primary Care Physician: Bebo Cole MD [Primary Care Provider] - Please Follow Up With: Daija Atkins DO When: next week Patient Instructions: ED Diarrhea Viral Disposition: Home Minutes spent on discharge:: 32 Patient Condition:: Good Medical Necessity - Tobacco Use Smoking Status: Never smoker Tobacco Use: Non-smoker Meaningful Use Info Meaningful Use Diagnoses (Choose all that apply): None applicable Inpatient E&M: 06229 Disch Hosp
--- NOTE | 2019-09-02 14:25 | CASEMGMT ---
GAUTAM MCNEIL DC PHONE CALL DC DATE: 08/28/2019 DC DISPOSITION: Home DC DIAGNOSIS: SARS COVID 2 pending on dc Testing came back not detected. Call to patient's phone, message left to return call. Pt was instructed to isolate on dc, and wear masks. GAUTAM MCNEIL call to answer questions and concerns. Julissa PEREZ RN ACM
== END 2019-08-28 12:35 | disposition home or self-care (01) | DRG 153 ==
LOC: ED 11:06 → ICU 14:34 → MS2 08-27 20:42
PROVIDERS: Hospitalist; Admitting Provider Internal Medicine; Emergency Provider Emergency Medicine; PCP Internal Medicine
DX: J06.9 Acute upper respiratory infection, unspecified (principal); K56.7 Ileus, unspecified; F11.23 Opioid dependence with withdrawal; T85.615A Breakdown (mechanical) of other nervous system device, implant or graft, initial encounter; M79.7 Fibromyalgia; Z87.01 Personal history of pneumonia (recurrent); G89.4 Chronic pain syndrome; Y75.8 Miscellaneous neurological devices associated with adverse incidents, not elsewhere classified
CPT/HCPCS: 36415; 71045; 74177; 80048; 80053; 82550; 83605; 83615; 83735; 83880; 84145; 84484; 85025; 85379; 85384; 86140; 87633; 87635; 93005; 99251; 99284; G2023; J7030; Q9967; A4216; G0463; J2405; U0003

== ENCOUNTER 2019-08-28 19:28 | Emergency (ER) | payer MEDICARE, SELFPAY ==
[2019-08-26 15:34] VITALS: BMI 30.9
[2019-08-28 19:31] VITALS: BP 139/92; PULSE 124; RESP 20; TEMP 36.8; O2SAT 96; BMI 30.7
[2019-08-28 19:41] VITALS: BP 128/96; PULSE 106; RESP 16; O2SAT 96
--- NOTE | 2019-08-28 20:20 | ED.RN ---
per ed dr no sitter is needed. ed hot car charger notified. yelena castillo rn 2020
--- NOTE | 2019-08-28 20:22 | ED.DCSUM_ITS ---
History of Present Illness Chief Complaint: Suicidal Informant: Patient Onset: Today Context: Gradual Onset Timing: Continuous Quality: see below Narrative: Patient states he has chronic peripheral neuropathy pain in his lower extremities, and he has a morphine intrathecal pump for this. It usually keeps the pain well controlled and tolerable, but recently it may have stopped working appropriately, he was admitted to the hospital here and released earlier today, he stayed for 2 days partially as a result of increased pain and it was thought that he was in narcotic withdrawal as a result of malfunctioning pump. He was discharged with a prescription for oxycodone, and he also is using medical marijuana at home to try to help manage his pain. He is not able to sleep because the pain is so bad. He is using these medications at home, not getting relief, and as a result tells staff here that he was considering suicide as a result, but on further questioning the patient states he does not have suicidal ideation and would not hurt himself, he just was saying that as an expression to explain how severe he is in pain. It is the weekend he cannot get a hold of his pain management doctor who is in [place] at [facility], and he does not think he will be able to manage his symptoms at home without IV morphine, which was helping in the hospital. He states that if needed, he would consider being admitted to a intermediate for this until he can get his pain pump fixed. - Past Medical History (1) Peripheral neuropathy Status: Chronic (2) Chronic pain Status: Chronic (3) Fibromyalgia Status: Chronic Past Medical History - Allergies and Home Meds Allergies/Adverse Reactions: Allergies levofloxacin [From Levaquin] Adverse Reaction (Verified 08/28/19 19:31) Other Primary Care Physician: Bebo Cole MD [STAFF PHYSICIAN] - Surgical History: - - intrathecal morphine pain pump Lives: Alone Smoking Status: Never smoker - Family History Maternal Family History: Reports: Hypertension Sibling Family History: Reports: Cancer Review of Systems General: Denies: Chills, Fever, Sweats Eyes: Denies: Visual changes - bilaterally, Diplopia ENT: Denies: Rhinorrhea, Sore throat Cardiovascular: Denies: Chest pain, Palpitations Respiratory: Denies: Dyspnea, Cough, Dyspnea on exertion Gastrointestinal: Denies: Abdominal pain, Nausea, Vomiting, Diarrhea, Melena, Hematochezia Genitourinary: Denies: Dysuria, Hematuria, Frequency Musculoskeletal: Reports: Extremity Pain. Denies: Back pain Skin: Denies: Rash, Wounds Neurological: Reports: Parasthesia. Denies: Headache, Weakness Physical Exam Vital Signs/Narrative: Vital Signs Temp Pulse Resp BP Pulse Ox 08/28/19 19:41 106 H 16 128/96 H 96 08/28/19 19:31 98.2 F 124 H 20 H 139/92 H 96 Inital Vital Signs reviewed: Yes General: Well nourished, Well developed, No Acute Distress - Very comfortable appearing. Using cell phone. Head: Normocephalic, Atraumatic Eyes: Perrl, EOMI ENT: Moist mucous membranes, No rhinorrhea Neck: Supple, Nontender Cardiovascular: Regular rate, Regular rhythm, No murmurs Respiratory: No distress, CTA bilaterally, Chest nontender Abdomen: Soft, Nontender, Nondistended, Normal bowel sounds Back: Nontender, Normal Inspection Extremities: Nontender, No edema Skin: Normal color, No rash, No Trauma Neurological: Alert, Oriented x3, Cranial nerves II-XII grossly intact, Normal Strength, Normal Sensation, Normal DTR Psychological: Normal affect, Normal Mood Diagnostic/Tx/Re-eval - Medical Decision Making I had social work evaluate the patient as well, she agrees that the patient is not actively suicidal and this was more of an expression to quantify how much pain he has been in. I asked the hospitalist to admit him to observation for pain control. He was given a dose of IV morphine. Hospitalist declined, saw the patient in the emergency department, and placed consult. It seems that the reason for his initial admission was medical based on the possibility of an ileus, and not for intractable pain. The provision of analgesics at discharge was a courtesy to the patient since he was going to be without a working pain pump. On further discussion, again the patient confirms that he is not suicidal. He also states that the oxycodone and medical marijuana that he uses at home are actually helping some with his discomfort. Furthermore, he states that with the medical marijuana he was sleeping 3 hours, whereas in the hospital with IV morphine he was only sleeping for 15 minutes. He seems more concerned about the fact that he cannot sleep in addition to his pain control. He was advised that he can take 2 or even 3 oxycodone 5 mg tablets at a time if needed. I offered a sleeping pill to see if that would help him. After morphine 10 mg IV, he states it helped only a little, and he is wide awake and not in the least bit lethargic. Therefore think it is safe to give him Ambien 5 mg, he is calling for a ride home and he is comfortable with this overall plan will call his pain management doctor Friday. ED Disposition - Plan for ED Patient: Disposition: Home or Assisted Living Diagnosis: Peripheral neuropathy, Neuropathic pain of both legs Instructions: ED PERIPHERAL NEUROPATHY Prescriptions: Zolpidem Tartrate [Ambien (Generic)] 5 mg PO QHS PRN PRN #4 tab PRN Reason: Insomnia Prescription Printed Referrals: Bebo Cole MD [STAFF PHYSICIAN] - As soon as possible (and/or your pain management doctor)
--- NOTE | 2019-08-28 20:39 | PCM.HP.STD ---
History of Present Illness The patient is a 59 year old M [] Past Medical History Past Medical History (Chronic Problems): Chronic Problems Fibromyalgia (Chronic) Peripheral neuropathy (Chronic) Chronic pain (Chronic) Allergies levofloxacin [From Levaquin] Adverse Reaction (Verified 08/28/19 19:31) Other Home Medications: Ambulatory Orders Medication Instructions Recorded Pregabalin [Lyrica] 300 mg PO BID 04/16/13 Acetaminophen [Tylenol Tablet] 650 mg PO Q6H PRN PRN tab 08/28/19 Oxycodone [Oxyir] 10 mg PO Q4H PRN PRN 4 Days #24 tab 08/28/19 Surgical History: - - intrathecal morphine pain pump Psychiatric History: No pertinent psych hx Lives: Alone Smoking Status: Never smoker Tobacco Use: Non-smoker Patient Problems: Active and Suspected Problems Intractable pain (Acute) - Physical Exam Vitals/I&O's: Vital Signs Temp Pulse Resp BP Pulse Ox 98.2 F 106 H 16 128/96 H 96 08/28/19 19:31 08/28/19 19:41 08/28/19 19:41 08/28/19 19:41 08/28/19 19:41 Oxygen Delivery Method Room Air Weight: 86.2 kg Body Mass Index (BMI) 30.7 Assessment/Plan All Active Problems Viral URI (Acute) Ileus (Acute) Suspected 2019-nCoV infection (Acute) Intractable pain (Acute)
[2019-08-28 20:52] VITALS: BP 145/94; PULSE 69; RESP 14; O2SAT 96
[2019-08-28] MEDS: morphine 10 MG/ML Syringe IV (20:53)
--- NOTE | 2019-08-28 21:05 | PCM.CONS.GEN ---
Problem List (1) Fibromyalgia Status: Chronic (2) Suspected 2019-nCoV infection Status: Acute (3) Peripheral neuropathy Status: Chronic (4) Chronic pain Status: Chronic (5) Intractable pain Status: Acute Reason for Consult Date of Consultation: 08/28/19 Reason for Consultation: pain History of Present Illness: The patient is a 59 year old M with a significant history of a fibromyalgia; and a peripheral neuropathy who presented to emergency department because of pain. Of note patient was admitted on 08/26/2019 for viral URI; suspicion of covid; ileus and acute opioid withdrawal. He was discharged on 08/27/2021 to self isolate and to follow-up with his pain management doctor Dr. Atkins. On discharge he was given 4 days prescription of 10 mg of oxycodone. Also he is on Lyrica. He had an intrathecal pump which reportedly had malfunctioned and has been turned off. His pain pump was placed because of peripheral neuropathy secondary to Levaquin use. He returned back on the same day of discharge saying that his pain is excruciating and he thinks that he should stay at the hospital for IV morphine. His pain is from his bilateral feet and lower leg to his shoulders. He describes his pain as burning. He reported that because of pain he wished to . Also he has been using marijuana for pain. Past Medical History Past Medical History (Chronic Problems): Chronic Problems Fibromyalgia (Chronic) Peripheral neuropathy (Chronic) Chronic pain (Chronic) Allergies levofloxacin [From Levaquin] Adverse Reaction (Verified 08/28/19 19:31) Other Home Medications: Ambulatory Orders Medication Instructions Recorded Pregabalin [Lyrica] 300 mg PO BID 04/16/13 Acetaminophen [Tylenol Tablet] 650 mg PO Q6H PRN PRN tab 08/28/19 Oxycodone [Oxyir] 10 mg PO Q4H PRN PRN 4 Days #24 tab 08/28/19 Surgical History: - - intrathecal morphine pain pump Psychiatric History: No pertinent psych hx Lives: Alone Smoking Status: Never smoker Tobacco Use: Non-smoker Alcohol: Rare Drugs: Marijuana - *Family History Maternal History Items: Hypertension Sibling History Items: Cancer Review of Systems Constitutional: Denies: Chills, Fever, Weight Change HEENT: Denies: Head Aches, Sinus Congestion, Sinus Drainage Cardiovascular: Denies: Chest Pain, Palpitations Respiratory: Denies: Cough, Shortness of breath at rest, Sputum production Gastrointestinal: Denies: Abdominal Pain, Nausea, Vomiting Genitourinary: Denies: Dysuria Musculoskeletal: Denies: Joint Pain, Joint Tenderness Skin: Denies: Rash, Wounds Neurological: Denies: Focal weakness, Headaches Psychiatric: Denies: Anxiety, Depression, Homicidal Ideations, Suicidal Ideations Hematologic/ Lymphatic: Denies: Easy Bruising, Easy Bleeding Patient Problems: Active and Suspected Problems Intractable pain (Acute) - Physical Exam Vitals/I&O's: Vital Signs Temp Pulse Resp BP Pulse Ox 98.2 F 69 14 145/94 H 96 08/28/19 19:31 08/28/19 20:52 08/28/19 20:52 08/28/19 20:52 08/28/19 20:52 Oxygen Delivery Method Room Air Weight: 86.2 kg Body Mass Index (BMI) 30.7 General: Alert, Oriented x3, Cooperative HEENT: Atraumatic, PERRLA, EOMI, Normocephalic Neck: Supple, No JVD, Negative Carotid Bruits Lungs: Clear to auscultation, Normal air movement Cardiovascular: Regular rate, Normal S1, Normal S2, No murmurs Abdomen: Bowel Sounds Present, Soft, Non Tender Extremities: No edema, Capillary Refill Less than 3 Seconds Skin: No rashes, No breakdown Musculoskeletal: No Tenderness to Palpation of Joints or Extremities Neurological: Cranial nerves II-XII grossly intact Psych/Mental Status: Normal Affect, Appropriate Laboratory Results 08/28/19 20:43: WBC Pending, RBC Pending, Hgb Pending, Hct Pending, MCV Pending, MCH Pending, MCHC Pending, RDW Std Deviation Pending, RDW Coeff of Francisco Pending, Plt Count Pending, Neut % (Auto) Pending, Absolute Neuts (auto) Pending 08/28/19 20:43: Sodium Pending, Potassium Pending, Chloride Pending, Carbon Dioxide Pending, Anion Gap Pending, BUN Pending, Creatinine Pending, Est GFR (MDRD) Af Amer Pending, Est GFR (MDRD) Non-Af Pending, BUN/Creatinine Ratio Pending, Glucose Pending, Calcium Pending Assessment/Plan All Active Problems Suspected 2019-nCoV infection (Acute) Intractable pain (Acute) The patient is a 59 year old M with a significant history of a fibromyalgia; and a peripheral neuropathy who presented to emergency department because of pain. Intractable pain Patient reported that the only reason why he wants to be admitted is to get IV morphine to control his pain. He denied suicidal ideation. He reported that his pain was so intense that he wish he would. Patient had already received 10 mg of IV morphine at the emergency department. On hospital discharge later on in the day (08/28/2019) he was prescribed oxycodone 10 mg p.o. every 4 hours as needed and acetaminophen 650 mg p.o. every 6 hours for pain. Consider optimizing his pain regiment at home. Will recommend continuing oxycodone 10 mg p.o. every 4 hours as needed and scheduling him on Tylenol instead of PRN Tylenol use. Concerned that escalating his oxycodone or escalating narcotic may lead to overdose and sedation. Also of note patient is on Lyrica 300 mg p.o. twice daily. Consider prescribing Narcan for patient. No need to admit patient at this time. Explained to patient that there is no need for him to be admitted and patient understands. On 08/30/2019 patient to notify his pain management doctor's office for further arrangements to be made. Suspected COVID Patient to continue self isolation at home as instructed on earlier discharge from the hospital on 08/28/2019. Office Visits / Consults: [id number] OP Consult L3
[2019-08-28 21:10] LABS: Absolute Neutrophil Count 13.4 X10^3/uL (2.0-7.7); Basophil# 0.03 X10^3/uL; Basophil% 0.2 % (0-1); Hematocrit 43.3 % (40-54); Hemoglobin 14.2 g/dL (13.0-16.5); Lymphocyte % 6.9 % (19-41); Mean Corp Hgb Conc 32.8 g/dL (32-36); Mean Corpuscular Volume 88.4 fL (80-94); Mean Platelet Vol. 9.4 fl (6.2-12.0); Monocyte% 7.6 % (0-10); NRBC Flagged by Analyzer 0 % (0-5); Neutrophil # 13.36 X10^3/uL (2.7-7.7); Neutrophil % 84.4 % (47-70); Platelet Count 328 K/mm3 (150-450); RBC Distribution Width CV 13.1 % (11.6-14.6); RBC Distribution Width SD 42.4 fl (35.1-43.9); White Blood Count 15.8 K/mm3 (4.4-11.0)
[2019-08-28 21:14] LABS: Anion Gap 9 (5-15); BUN 16 mg/dL (7-18); BUN/Creat Ratio 13.9 RATIO (10-20); Calcium,Total 9.4 mg/dL (8.5-10.1); Chloride 107 mmol/L (98-107); Creatinine, Serum 1.15 mg/dL (0.70-1.30); EST Glomerular Filtration Rate 69 mL/min (>60); Est Glom Filt Rate - Afr Amer 83 mL/min (>60); Estimated Creatinine Clearance 60.87 ml/min; Glucose 118 mg/dL (74-106); Potassium 3.7 mmol/L (3.5-5.1); Sodium Level 141 mmol/L (136-145)
--- NOTE | 2019-08-28 21:16 | CM.ED ---
Social Work Consult: Mental Health Informant: Dr. Crandall Chief Complaint: Patient states that patient pain pump resent stopped working and the pain caused patient to have a suicidal thought. Patient states I don't want to . Marital/Social History: since 2007. Living Situation: Lives with parents. Support/Resources: No active counseling. Has home health services to manage pain pump refills. History: None Education/Employment: Disability. Denies any concerns with comprehension or understanding. Mental Health Treatment/History: Depression. Currently not medicated for depression but states history of medication. Denies any inpatient psychiatric placement history. Triggers/Stressors: Pain pump stopped working, being in pain. Coping Skills: Talking to people. Patient states to have been talking with family and friends. Abuse Issues: Denies Substance Abuse/Use: THC, active use. Denies any other substance abuse/use. Risk to Self/Others: Reports to have had a suicidal thought today. Denies any plan or intent. Patient states to want to live and looks forward to getting better. Patient denies any plans/thoughts/intents to harm others. Mental Status Exam: A&Ox3 Appearance/General Behavior: Clean. Calm. Mood/Affect: Appropriate. Pleasant. Communication Pattern: Responds to questions. Thought Process: Denies any A/V hallucinations. Judgement: Fair. Assessment: Met with patient in room. Introduced self as well as social service coordinator role. Patient agreeable to speaking with this social service coordinator. Patient with no history of suicidal attempts or thoughts. Patient states I was just overwhelmed. Patient states to be feeling better now that patient is at the hospital. Patient states that per doctor, plan is for patient to discharge to home with another pain management regiment. Patient states to be agreeable to plan to return to the community. Patient states to want to live and is forward focused. Patient does not have a plan or intent to complete suicide. Patient suicidal thought was fleeting and patient reached out to family/friends. This social service coordinator also providing patient with crisis hotline number in the event that this is needed. This social service coordinator counseling patient on lethal means. Patient states there is only old riffles in the home and no ammunition. This social service coordinator did advice patient that safest option would be to not have any firearms in the home, patient voicing understanding to this and states I want to live. Active support and listening provided. Updated Dr. Crandall on above information. Dr. Crandall confirming plan for patient to discharge to the community. PLAN: Discharge to home. Cuate COOPER, MARY
[2019-08-28 21:27] VITALS: BP 154/95; PULSE 70; RESP 16; O2SAT 97
[2019-08-28] MEDS: Zolpidem Tartrate 5 MG Tablet PO (22:44)
[2019-08-28 22:53] VITALS: BP 147/68; PULSE 50; RESP 16; O2SAT 98
== END 2019-08-28 22:54 | disposition home or self-care (01) ==
PROVIDERS: Emergency Provider Emergency Medicine
DX: G62.9 Polyneuropathy, unspecified (principal); Z97.8 Presence of other specified devices; M79.7 Fibromyalgia; Z79.899 Other long term (current) drug therapy
CPT/HCPCS: 80048; 85025; 96374; 99285; A4216

== ENCOUNTER 2019-12-17 03:18 | Emergency (ER) | payer MEDICARE, SELFPAY ==
[2019-12-17 03:19] VITALS: BP 141/94; PULSE 91; RESP 16; TEMP 36.2; O2SAT 96; BMI 34.8
[2019-12-17 03:23] VITALS: BP 141/94; PULSE 95; RESP 16; TEMP 36.2; O2SAT 96
--- NOTE | 2019-12-17 03:23 | RAD_ITS ---
STUDY: X-RAY - LEFT HAND REASON FOR EXAM: Male, 59 years old. Splinter between first and second finger for almost two weeks, swollen. TECHNIQUE: 3 view(s) of the hand. COMPARISON: None. FINDINGS: There is a punctate radiopaque density along the radial aspect of the proximal second phalangeal soft tissue. This is 3.2 mm deep to the skin level on the AP view. This is not sufficiently detailed on the lateral view. Soft tissue prominence along the proximal second phalanx. Normal radiocarpal articulation. Normal distal radioulnar joint. Normal visualized carpal bones. Normal carpal articulations Normal carpometacarpal articulation of the thumb. Normal second through fifth carpometacarpal joints. Normal metacarpi. Normal metacarpophalangeal joint of the thumb. Normal interphalangeal joint of the thumb. Normal proximal and distal phalanges of the thumb. Normal metacarpophalangeal joints of the second through fifth fingers. Normal proximal and distal interphalangeal joints of the second through fifth fingers. Oblique fracture with indistinct contour involving the distal third phalangeal tuft possible subacute to early chronic in age. Otherwise normal phalanges of the second through fifth fingers. RAD/Hand Min 3 Views IMPRESSION: Punctate radiopaque density second proximal phalangeal soft tissue with swelling. Subacute to early chronic fracture of the third distal phalanx suspected. Electronically Signed: Cristin Espinal MD at 4:06 EDT , Service support ,
--- NOTE | 2019-12-17 03:24 | ED.DCSUM_ITS ---
History of Present Illness Chief Complaint: Abscess Informant: Patient Onset: Weeks - 1 Context: Gradual Onset Timing: Continuous Quality of Pain: Aching Location: left hand Current Severity: Moderate Maximum Severity: Moderate Worsened by: movement, palpation Relieved by: leaving alone Associated Symptoms: Negative for: Parasthesia, Weakness, Loss of Funtion Narrative: 59-year-old male states he was handling a wooden board around 10 days ago that was meant to be for a ramp for a golf cart, he slid it down his hand and it accidentally put a fairly large splinter of wood into his left hand. He states he tried to pull it out unsure if he got it all or not. For about the past 7 days as a result of this wound, he has had swelling and redness there along with some purulent discharge. He has been trying to manage it on his own by expre ssing pus since then, and presents at 3 AM for evaluation since it is not getting better. Denies any systemic symptoms or fevers. Denies any other new acute symptoms. - Past Medical History (1) Chronic pain Status: Chronic (2) Fibromyalgia Status: Chronic (3) Peripheral neuropathy Status: Chronic Past Medical History - Allergies and Home Meds Allergies/Adverse Reactions: Allergies levofloxacin [From Levaquin] Adverse Reaction (Verified 08/28/19 19:31) Other Primary Care Physician: Care Physician,No Primary [Primary Care Provider] - Surgical History: - - intrathecal morphine pain pump Smoking Status: Current every day smoker - Family History Maternal Family History: Reports: Hypertension Sibling Family History: Reports: Cancer Review of Systems General: Denies: Chills, Fever, Sweats Musculoskeletal: Reports: Extremity Pain. Denies: Myalgias Skin: Reports: Abscess, Wounds. Denies: Rash Neurological: Reports: Numbness - Both feet chronic unchanged. Denies: Headache, Weakness Physical Exam Vital Signs/Narrative: Vital Signs Temp Pulse Resp BP Pulse Ox 12/17/19 03:19 97.1 F L 91 16 141/94 H 96 General: Well nourished, Well developed Head: Normocephalic, Atraumatic Extremeties: Tenderness at the abscess in the webspace between the thumb and left index finger, full range of motion throughout all digits, no tenderness in the distribution of any flexor tendons. Skin: Normal color, - - 2 cm abscess left palmar webspace between the thumb and index finger with purulent discharge easily expressible from a very small wound. Cannot definitively feel any foreign material in the hand. No lymphangitis. Neurological: Alert, Oriented x3, Normal Strength, Normal Gait Psychological: Normal affect, Normal Mood Diagnostic/Tx/Re-eval Clinical Impression(s) from Imaging Studies Hand X-Ray 12/17/19 03:23 IMPRESSION: Punctate radiopaque density second proximal phalangeal soft tissue with swelling. Subacute to early chronic fracture of the third distal phalanx suspected. Electronically Signed: Cristin Espinal MD at 4:06 EDT , Service support , - Medical Decision Making X-rays were obtained. The small foreign body that was noted on the x-ray is in the index finger, distal to where the abscesses and does not communicate with this and is likely on the skin. Patient has no clinical tenderness here. Also, at the distal phalanx of the third digit, the patient states he injured that a couple months ago, now it does not hurt anymore, it probably is a subacute fracture from then, he is not tender there and has no subungual hematoma, deformity, swelling, or signs of infection. We opened the abscess, drained and irrigated it completely, to cover the possibilities of strep and MRSA, he will be placed on both sulfa antibiotic as well as cephalexin. Procedures Procedure(s): Simple abscess incision and drainage, left hand --topical let was placed initially for 20 minutes, followed by 2 cc of local 1% plain lidocaine, prepped with chlorhexidine, and a small incision was made over the pinpoint- sized opening, with a #10 blade. Purulent discharge was expressed, the cavity was deloculated, it does not go deep into the hand to any tendons, it remained in the webspace. It was irrigated and dressed with bacitracin. Patient tolerated well, no complications. ED Disposition - Plan for ED Patient: Disposition: Home or Assisted Living Diagnosis: Abscess of left hand, Closed fracture of distal phalanx of finger of left hand Instructions: ED Abscess Incision And Drainage Prescriptions: Smz/Tmp Ds [Bactrim Ds] 1 tab PO BID #14 tab Prescription Printed Cephalexin [Keflex] 500 mg PO 4X/DAY #28 cap Prescription Printed Referrals: Aaron Cason DO [STAFF PHYSICIAN] - As Needed (for issues with your middle finger)
[2019-12-17] MEDS: Smz/Tmp Ds Tablet 1 TABLET PO (03:50)
[2019-12-17] MEDS: Lidocaine/Epi/Tetracaine 50 ML 1 APPLIC TOPICAL (03:50)
[2019-12-17 05:01] VITALS: BP 139/80; PULSE 83; RESP 17; O2SAT 96
== END 2019-12-17 05:02 | disposition home or self-care (01) ==
PROVIDERS: Emergency Provider Emergency Medicine
DX: L02.512 Cutaneous abscess of left hand (principal); S62.639A Displaced fracture of distal phalanx of unspecified finger, initial encounter for closed fracture; F17.200 Nicotine dependence, unspecified, uncomplicated; X58.XXXA Exposure to other specified factors, initial encounter
CPT/HCPCS: 10060; 73130; 99281; 99284

== ENCOUNTER → 2020-08-10 17:13 | Outpatient (CLI) | payer MEDICARE, SELFPAY ==
--- NOTE | 2020-08-10 17:20 | RAD_ITS ---
EXAM: XR LEFT KNEE COMPLETE, 4 OR MORE VIEWS : 1960 CLINICAL INDICATION: KNEE JOINT PAIN TECHNIQUE: Four or more views of the left knee. This report was created using [employer] report generation technology. COMPARISON: None. FINDINGS: BONES/JOINTS: There is narrowing of the medial knee joint with small osteophytes. No acute fracture. No subluxation. Normal alignment. No sclerotic or destructive changes observed. SOFT TISSUES: Unremarkable. No soft tissue swelling or gas. No radiopaque foreign body. RAD/Knee 4 or More Views IMPRESSION: Degenerative changes with narrowing of the medial knee joint with small osteophytes. There are no acute osseous abnormalities. at 1909 Reported and signed by: Bartolome Hatfield MD Electronically Signed: Bartolome Hatfield MD at 19:08 EDT Tel , Service support ,
--- NOTE | 2020-08-10 17:21 | RAD_ITS ---
EXAM: XR RIGHT KNEE COMPLETE, 4 OR MORE VIEWS : 1960 CLINICAL INDICATION: KNEE JOINT PAIN TECHNIQUE: Four or more views of the right knee. This report was created using [employer] report generation technology. COMPARISON: None. FINDINGS: BONES/JOINTS: There is mild narrowing of the medial knee joint. There is a small osteophyte present. No acute fracture. No subluxation. Normal alignment. No sclerotic or destructive changes observed. SOFT TISSUES: Unremarkable. No soft tissue swelling or gas. No radiopaque foreign body. RAD/Knee 4 or More Views IMPRESSION: Mild degenerative changes with narrowing of the medial knee joint. There is a small osteophyte. There are no acute osseous abnormalities. at 1906 Reported and signed by: Bartolome Hatfield MD Electronically Signed: Bartolome Hatfield MD at 19:05 EDT Tel , Service support ,
== END ==
DX: M25.569 Pain in unspecified knee (principal)
CPT/HCPCS: 73564

== ENCOUNTER 2022-06-11 18:09 | Inpatient (IN) | payer MEDICARE, SELFPAY ==
[2022-06-11 18:10] VITALS: BP 110/84; PULSE 112; RESP 20; TEMP 36.7; O2SAT 92; BMI 32.5
--- NOTE | 2022-06-11 18:52 | RAD_ITS ---
INDICATION: SOB EXAMINATION/TECHNIQUE: X-RAY - XR Chest 2 Views COMPARISON: 03/27/2019 FINDINGS: LINES/DEVICES: None. LUNGS: Wedge-shaped consolidative opacity in the right midlung. Elevated right hemidiaphragm and infiltrates scattered throughout the remaining right lung. The left lung appears clear MEDIASTINUM AND CARDIOVASCULAR STRUCTURES: Cardiac silhouette not enlarged. Central airways and mediastinal contour are unremarkable. RAD/Chest PA and Lateral IMPRESSION: Right midlung consolidation/atelectasis with surrounding infiltrates. Electronically Signed: Jas Major MD at 19:05 EDT ,
--- NOTE | 2022-06-11 18:53 | EDS_ITS ---
HPI History of Present Illness Chief Complaint: Shortness of Breath Detail of Chief Complaint: COVID +, cough, shortness of breath, feared hypoxia Narrative Narrative: Patient is a 61-year-old male who is presenting to the ER with chief complaint of being diagnosed with COVID yesterday at home. Patient has had upper respiratory infections since last . Patient has not seen a physician in the last 6 to 10 years. Patient did talk to a physician on the phone over a telehealth, patient did have a home pulse ox monitor and is pulse ox was anywhere between 88-90%. Patient is more concerned because he was on the ventilator for 1 to 2 weeks back in 2010 for pneumonia. 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 Patient currently has frontal sinus headache, mild bilateral maxillary pressure. Patient has minimal sore throat, mild ear pain. Patient is having coarse cough, mild shortness of breath at rest or with exertion. Patient has no chest heaviness, no chest tightness. No abdominal pain, nausea or vomiting. Patient has decrease in appetite. Patient has myalgia and arthralgia. Patient's daughter is at bedside. Patient lives at home with his parents. Patient is never been a smoker. Patient has no pulmonary pathology in his history of emphysema, COPD or asthma. Patient is very cautious of any shortness of breath cough or COVID secondary to his history of being on ventilator for several weeks back in 2010. [facility] Medical History (Updated 06/11/22 @ 20:[address] Ben Kirk, ) Neuropathy Home Medications pregabalin 300 mg capsule (Lyrica) 300 mg PO BID NERVE PAIN 04/16/13 [History Last Taken 08/26/19] acetaminophen 325 mg tablet 650 mg PO Q6H PRN PRN Pain Score 1-12/1008/28/19 [Rx Last Taken Unknown] cephalexin 500 mg capsule 500 mg PO 4X/DAY #28 caps 12/17/19 [Rx Last Taken Unknown] fentanyl 50 mcg/hr transdermal patch 1 ea TD DAILY 12/17/19 [History Last Taken Unknown] meloxicam 15 mg tablet 15 mg PO DAILY 12/17/19 [History Last Taken Unknown] oxycodone 10 mg tablet 10 mg PO DAILY 12/17/19 [History Last Taken Unknown] sulfamethoxazole 800 mg-trimethoprim 160 mg tablet 1 tab PO BID #14 tabs 12/17/19 [Rx Last Taken Unknown] albuterol sulfate 90 mcg/actuation aerosol inhaler (Ventolin HFA) 1 - 2 puff inhalation Q4H PRN PRN Wheezing #8.5 grams 06/11/22 [Rx Last Taken Unknown] ondansetron 4 mg disintegrating tablet 4 mg PO Q4H PRN PRN Nausea #10 tabs 06/11/22 [Rx Last Taken Unknown] Allergy/AdvReac Type Severity Reaction Status Date / Time levofloxacin [From Levaquin] AdvReac Other Verified 08/28/19 19:31 Family History (Updated 06/11/22 @ 20:[address] Tc Navarro MD) Other Breast cancer Cancer Thyroid disorder Surgical History History of herniorrhaphy Social History Smoking Status: Never smoker ROS ROS ED ROS Narrative REVIEW OF SYSTEMS: Unless otherwise stated in this report the patient's positive and negative responses for review of systems for constitutional, eyes, ENT, cardiovascular, respiratory, gastrointestinal, neurological, , musculoskeletal, and integument systems and related systems to the presenting problem are either stated in the history of present illness or were not pertinent or were negative for the symptoms and/or complaints related to the presenting medical problem. EXAM Physical Exam Narrative Exam Narrative: Vital signs reviewed and patient is hypoxic, 92-93% on room air. General: The patient appears well and in no apparent distress. Patient is resting comfortably on cart. Not toxic, lethargic, or listless. Patient does have a coarse cough intermittently throughout history and physical. Skin: Warm, dry, no pallor noted. There is no rash noted. Head: Normocephalic, atraumatic Eye: Normal conjunctiva, no drainage, EOMI. PERRL. Ears, Nose, Mouth, and Throat: oral mucosa is moist. Nares patent. Mouth without vesicles. Ear canals patent. Tm's without Erythema Cardiovascular: Regular Rate and Rhythm, no murmurs, gallops, or rubs Respiratory: Patient is in no distress, no accessory muscle use, lungs are coarse breath sounds bilateral, no wheezing, rales; mild diffuse bilateral rhonchi Back: non-tender, no CVA tenderness bilaterally to percussion. NO CTLS midline or paracervical tenderness to palpation. GI: Soft, obese, no tenderness to palpation, no masses appreciated. No rebound, guarding, or rigidity noted. Musculoskeletal: The patient has full range of motion of all extremities and joints with no difficulty. Patient has no motor, no sensory deficits. Neurological: A&O x4, normal speech, no focal neurological deficits. Psychiatric: Cooperative Const Vital Signs: 06/11/22 18:10 06/11/22 18:56 06/11/22 18:55 Temperature 98.1 F Temperature Source Temporal Pulse Rate 112 H Respiratory Rate 20 H Respiratory Effort Short of Breath Short of Breath Respiratory Depth Respiratory Pattern Blood Pressure 110/84 H Blood Pressure Mean 92 Pulse Ox 92 Oxygen Delivery Method Room Air Room Air 06/11/22 19:07 06/11/22 19:07 06/11/22 20:31 Temperature Temperature Source Pulse Rate 103 H Respiratory Rate 18 20 H 17 Respiratory Effort Normal Non-Labored Short of Breath Respiratory Depth Normal Respiratory Pattern Normal Normal Blood Pressure Blood Pressure Mean Pulse Ox 91 Oxygen Delivery Method Room Air MDM MDM Radiography Chest X-Ray - ED: Read by ED Physician (Chest x-ray shows significant right middle lobe wedge-shaped infiltrate, also diffuse infiltrates on the right greater than left as well. No signs of pneumothorax,) Diagnostic Testing: Clinical Impression(s) from Imaging Studies Chest X-Ray 06/11/22 18:52 IMPRESSION: Right midlung consolidation/atelectasis with surrounding infiltrates. Electronically Signed: Jas Major MD at 19:05 EDT , EKG Initial EKG: Attestation: I personally reviewed and interpreted this EKG as follows: Comments: EKG interpretation. Normal sinus rhythm at 99 beats a minute. Normal axis deviation. No acute ST elevation, no acute ectopy. QTc of 459. Artifact noted.. Treatment and Re-Evaluation Comments:: Patient had a chest x-ray, also was given a DuoNeb breathing treatment. Patient chest x-ray shows significant wedge-shaped right middle lobe pneumonia, with surrounding infiltrate. Patient does look well, 91-92% on room air. Secondary to significant findings on chest x-ray, I have spoken to at 1999. Patient will have IV established, IV lab work, patient will be started on IV Rocephin, Zithromax, and also IV Decadron [address] Navarro. Patient will be started on IV fluids, troponin, lab work will be started. 2009 Dr Navarro stated that patient will not officially be excepted for admission until lab work has returned. He also asked for a CTA of the chest to be performed along with Influenza. Discharge Plan Dx/Rx/DC Orders Clinical Impression: COVID-19, Dyspnea, Right middle lobe pneumonia, Hypoxia Disposition Disposition: Acute Care Hospital [facility]
[2022-06-11 19:07] VITALS: PULSE 103; RESP 18; RESP 20; O2SAT 91
[2022-06-11] MEDS: Ipratropium/Albuterol Sulfate 3 ML AMPUL.NEB INHALATION (19:07)
--- NOTE | 2022-06-11 20:01 | PCM.HP.STD ---
HPI - General General Date of Admission: 06/11/22 Date of Service: 06/11/22 Chief Complaint: Hypoxia HPI Narrative GLORIA WATERS, is a 61 M with a previous history of bilateral pneumonia in 2010 with subsequent 8 days intubation and a total of 16 days at a hospital presents to the emergency department with hypoxia. Four days before presentation patient had headache, and chest pain. He had a COVID test the day before presentation that returned positive. Patient was started on Paxlovid outpatient and advised that if his oxygen falls below 92% he should seek further care. Because patient was having trouble keeping his oxygen up to 90% at home patient came to the emergency department for further evaluation and treatment. Associated with his symptoms is sore throat, anorexia, and dysgeusia. He reports that because of anorexia he lost about 12 pounds in 2 days (June 07 to June 09 2022). He reports a productive cough of green to yellow sputum. He denies shortness of breath but reports chest tightness and chest pain. Also he reports polyuria. At the emergency department patient oxygen saturation was above 90%. However because of concern with his history of bilateral pneumonia in 2010 requiring intubation Emergency Department doctor recommended that patient stays at the hospital. 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 pain pills. [facility] Medical History Chest pain Depression Neuropathy Home Medications pregabalin 300 mg capsule (Lyrica) 300 mg PO BID NERVE PAIN 04/16/13 [History Last Taken 06/11/22 17:00] acetaminophen 325 mg tablet 650 mg PO Q6H PRN PRN Pain Score 1-12/1008/28/19 [Rx Last Taken 06/11/22 17:00] meloxicam 15 mg tablet 15 mg PO DAILY 12/17/19 [History Last Taken 06/11/22 17:00] albuterol sulfate 90 mcg/actuation aerosol inhaler (Ventolin HFA) 1 - 2 puff inhalation Q4H PRN PRN Wheezing #8.5 grams 06/11/22 [Rx Last Taken Unknown] hydromorphone 2 mg tablet 2 mg PO Q6H PRN PRN Pain 06/12/22 [History Last Taken 06/11/22 17:00] nirmatrelvir 300 mg (150 mg x2)-ritonavir 100 mg tablet,dose pack(EUA) 3 tab PO BID covid 06/12/22 [History Last Taken 06/11/22 17:00] Allergy/AdvReac Type Severity Reaction Status Date / Time levofloxacin [From Levaquin] AdvReac Other Verified 08/28/19 19:31 Family History Other Breast cancer Cancer Thyroid disorder Surgical History History of herniorrhaphy S/P appendectomy Social History Smoking Status: Never smoker ROS ROS Narrative Pertinent positives and pertinent negatives as noted in HPI. All other systems were reviewed and are negative Vital Signs Vital Signs Vital Signs: 06/11/22 18:10 06/11/22 18:56 06/11/22 18:55 Temperature 98.1 F Temperature Source Temporal Pulse Rate 112 H Respiratory Rate 20 H Respiratory Effort Short of Breath Short of Breath Respiratory Depth Respiratory Pattern Blood Pressure 110/84 H Blood Pressure Mean 92 Pulse Ox 92 Oxygen Delivery Method Room Air Room Air 06/11/22 19:07 06/11/22 19:07 Temperature Temperature Source Pulse Rate 103 H Respiratory Rate 18 20 H Respiratory Effort Normal Non-Labored Short of Breath Respiratory Depth Normal Respiratory Pattern Normal Normal Blood Pressure Blood Pressure Mean Pulse Ox 91 Oxygen Delivery Method Room Air Weight Weight: 91.535 kg Body Mass Index (BMI) 32.5 Physical Exam Narrative Physical exam: General: Well-nourished, well-developed. Head: Normocephalic, atraumatic, no tenderness Eyes: Vision is grossly intact. EOMI ENT, no trauma, moist mucous membranes, no rhinorrhea Neck: Nontender, No thyromegaly. CVS: Tachypnea. S1-S2 present. No murmur, gallop or rub. Respiratory : Rales bilaterally, chest wall nontender Abdomen: Soft, nontender, nondistended, normal bowel sounds, no masses : Deferred Back: Nontender, no CVA tenderness, no midline spinal tenderness, deformities, step-offs Extremities: Nontender full range of motion, no trauma Skin: Normal color, no trauma, abrasions Neuro: Alert, oriented, cranial nerves II through XII grossly intact. Psychiatry: Normal mood. Normal affect. Not depressed. Not anxious. Results Lab / Micro Data Result Diagrams: 06/12/22 03:43 06/12/22 03:43 Radiology Impression Chest X-Ray 06/11/22 18:52 IMPRESSION: Right midlung consolidation/atelectasis with surrounding infiltrates. Electronically Signed: Jas Major MD at 19:05 EDT , Assessment & Plan Assessment/Plan (1) Right middle lobe pneumonia: (2) COVID-19: (3) Pneumonia due to COVID-19 virus: PLAN: Plan Pneumonia secondary to SARS- COV 2 Positive coronavirus test. Negative influenza test. Impression of chest x-ray by radiologist: Right midlung consolidation/atelectasis with surrounding infiltrates. Actual chest x-ray image was independently interpreted. I agree with radiologist interpretation. Follow-up chest CTA?impression by radiologist: Substantial right upper lobe consolidation with infiltrates to the remaining right lung, compatible with pneumonia. Mediastinal and right hilar lymph nodes likely reactive. No demonstrated pulmonary embolism or atrial dissection. Chest CTA was visualized and independently interpreted and I agree with radiologist interpretation. Decadron 6 mg IV ordered at the ED and then started on Decadron 6 mg p.o. daily. Patient is to continue his Paxlovid that he started from home. Tylenol for fever Mucinex ordered Bacteria Pneumonia Procalcitonin was severely elevated at 9.81. Chest x-ray and CTA with radiographic evidence of bacterial pneumonia. Lactic acid: 3.7. Trended to 2.4. Patient does not meet SIRS criteria to be considered as septic. Azithromycin and ceftriaxone started emergency department and continued. Of note patient cannot take Levaquin as he developed neuropathy with Levaquin and required a pain pump n.p.o. pain medicines. Albuterol inhalation as needed Legionella antigen screen and Strep antigen ordered Polyuria Urine culture ordered. DVT Prophylaxis: Subcutaneous Lovenox ordered. Charges/Coding Visit Charges Inpatient E&M: 07772 Init Hosp L3
[2022-06-11 20:31] VITALS: RESP 17
[2022-06-11] MEDS: dexAMETHasone 10 MG/ML Vial 6 MG IV (20:43)
[2022-06-11] MEDS: Ceftriaxone 1 GM/50 ML BAG IV (20:43)
[2022-06-11 20:52] LABS: Absolute Lymphocyte Count 0.38 X10^3/uL (0.83-4.51); Absolute Neutrophil Count 6.5 X10^3/uL (2.0-7.7); Basophil# 0.06 X10^3/uL; Basophil% 0.8 % (0-1); Differential Indicated SCAN CRITERIA MET; Hematocrit 42.8 % (40-54); Hemoglobin 13.7 g/dL (13.0-16.5); Lymphocyte # 0.38 X10^3/ul (0.83-4.51); Mean Corpuscular Hgb 28.8 pg (27.0-32.0); Mean Corpuscular Volume 90.1 fL (80-94); Monocyte# 0.51 X10^3/uL; Monocyte% 6.7 % (0-10); NRBC Flagged by Analyzer 0 % (0-5); Neutrophil # 6.47 X10^3/uL (2.7-7.7); Neutrophil % 84.4 % (47-70); POSITIVE DIFFERENTIAL YES; POSITIVE MORPHOLOGY YES; Platelet Count 188 K/mm3 (150-450); RBC Distribution Width CV 13.7 % (11.6-14.6); RBC Distribution Width SD 45.5 fl (35.1-43.9); Red Blood Count 4.75 M/mm3 (4.6-6.2); White Blood Count 7.7 K/mm3 (4.4-11.0)
[2022-06-11 21:12] LABS: BNP,B-Type NATRIURETIC PEPTIDE 12.8 pg/mL (0-100)
[2022-06-11 21:15] LABS: ALB/GLOB Ratio 0.5 RATIO (0.9-2.4); AST(SGOT) 284 U/L (15-37); Alanine Aminotransfer ALT/SGPT 151 U/L (16-61); Albumin, Serum 2.5 g/dL (3.2-5.0); Alkaline Phosphatase 224 U/L (45-117); Anion Gap 4 (5-15); BUN 39 mg/dL (7-18); BUN/Creat Ratio 22.5 RATIO (10-20); CPK Total, Creatine Kinase 70 U/L (39-308); Calcium,Total 8.9 mg/dL (8.5-10.1); Chloride 104 mmol/L (98-107); Creatinine, Serum 1.73 mg/dL (0.70-1.30); EST Glomerular Filtration Rate 43 mL/min (>60); Est Glom Filt Rate - Afr Amer 51 mL/min (>60); Estimated Creatinine Clearance 39.44 ml/min; Globulin 4.6 g/dL (2.2-4.2); Glucose 138 mg/dL (74-106); Potassium 3.4 mmol/L (3.5-5.1); Protein, Total 7.1 g/dL (6.4-8.2); Sodium Level 136 mmol/L (136-145); Troponin-I HS 15 pg/mL (3.0-78.0)
[2022-06-11 21:22] LABS: Lactic Acid 3.7 mmol/L (0.4-1.9)
[2022-06-11 21:23] LABS: Differential Comment SCANNED
--- NOTE | 2022-06-11 21:35 | CT_ITS ---
STUDY: CTA CHEST REASON FOR EXAM: Male, 61 years old. SOB RADIATION DOSAGE (If Supplied By Facility): CTDIvol = ( 9.45 ) mGy, DLP = ( 524.40 ) mGycm TECHNIQUE: The examination was performed with the intravenous administration of 100ML OF ISOVUE 370. Post-processing of the angiographic images was performed, with multiplanar reformation and 3D reconstruction. Individualized dose optimization techniques were used for this CT. COMPARISON: Same day chest x-ray FINDINGS: Normal enhancement of the main pulmonary artery and right and left pulmonary arteries. Normal enhancement of the bilateral peripheral pulmonary arteries. There is no demonstrated pulmonary embolism. Normal thoracic aorta and visualized great vessels. There is no demonstrated aortic dissection. Normal heart and pericardium. Multiple enlarged mediastinal and right hilar lymph nodes. Mild tracheobronchial secretions. Extensive right upper lobe consolidation with associated bronchiectasis. Other groundglass and infiltrative densities throughout the right lung. Normal pleura. Normal chest wall structures. Multiple old right rib fractures. Cholelithiasis. CT/CTA Chest W/WO Contrast IMPRESSION: Substantial right upper lobe consolidation with infiltrates throughout the remaining right lung, compatible with pneumonia. Mediastinal and right hilar lymph nodes are likely reactive. No demonstrated pulmonary embolism or arterial dissection. Electronically Signed: Jas Major MD at 22:22 EDT ,
[2022-06-11 23:09] VITALS: BP 132/74; BP 134/70; PULSE 74; PULSE 77; RESP 15; TEMP 36.8; O2SAT 94; O2SAT 97
[2022-06-11 23:51] VITALS: BMI 32.1
[2022-06-12] VITALS (7 sets, daily range): BP systolic 122–137; BP diastolic 81–99; PULSE 69–90; RESP 18; TEMP 36.4–36.6; O2SAT 93–97
[2022-06-12] MEDS: Enoxaparin 30 MG/0.3 ML Syringe SC ×3 (00:35→21:26)
[2022-06-12] MEDS: guaiFENesin 1,200 MG Tablet 1200 MG PO ×3 (00:36→21:29)
[2022-06-12 00:38] LABS: Troponin-I HS 16 pg/mL (3.0-78.0)
[2022-06-12 00:41] LABS: Reflex Lactate? Y
[2022-06-12 00:59] LABS: Procalcitonin 9.81 ng/mL (0.00-0.09)
[2022-06-12 01:37] LABS: Lactic Acid 2.4 mmol/L (0.4-1.9)
[2022-06-12 03:52] LABS: Absolute Lymphocyte Count 0.34 X10^3/uL (0.83-4.51); Absolute Neutrophil Count 6.5 X10^3/uL (2.0-7.7); Basophil# 0.03 X10^3/uL; Basophil% 0.4 % (0-1); Hematocrit 39.5 % (40-54); Hemoglobin 13.1 g/dL (13.0-16.5); Lymphocyte # 0.34 X10^3/ul (0.83-4.51); Lymphocyte % 4.6 % (19-41); Mean Corp Hgb Conc 33.2 g/dL (32-36); Mean Corpuscular Hgb 29.4 pg (27.0-32.0); Mean Corpuscular Volume 88.8 fL (80-94); Monocyte# 0.35 X10^3/uL; Monocyte% 4.7 % (0-10); NRBC Flagged by Analyzer 0 % (0-5); Neutrophil % 88.3 % (47-70); POSITIVE DIFFERENTIAL YES; Platelet Count 169 K/mm3 (150-450); RBC Distribution Width CV 13.7 % (11.6-14.6); RBC Distribution Width SD 44.5 fl (35.1-43.9); Red Blood Count 4.45 M/mm3 (4.6-6.2); White Blood Count 7.4 K/mm3 (4.4-11.0)
[2022-06-12 03:54] LABS: Differential Indicated SCAN CRITERIA MET
[2022-06-12 04:04] LABS: Differential Comment SCANNED
[2022-06-12 04:25] LABS: Troponin-I HS 14 pg/mL (3.0-78.0)
[2022-06-12 04:30] LABS: ALB/GLOB Ratio 0.5 RATIO (0.9-2.4); AST(SGOT) 259 U/L (15-37); Alanine Aminotransfer ALT/SGPT 153 U/L (16-61); Albumin, Serum 2.4 g/dL (3.2-5.0); Alkaline Phosphatase 212 U/L (45-117); Anion Gap 6 (5-15); BUN 29 mg/dL (7-18); BUN/Creat Ratio 27.6 RATIO (10-20); Calcium,Total 8.7 mg/dL (8.5-10.1); Chloride 104 mmol/L (98-107); Creatinine, Serum 1.05 mg/dL (0.70-1.30); EST Glomerular Filtration Rate 76 mL/min (>60); Est Glom Filt Rate - Afr Amer 92 mL/min (>60); Estimated Creatinine Clearance 64.98 ml/min; Globulin 4.4 g/dL (2.2-4.2); Glucose 131 mg/dL (74-106); Potassium 3.7 mmol/L (3.5-5.1); Protein, Total 6.8 g/dL (6.4-8.2); Sodium Level 136 mmol/L (136-145)
[2022-06-12 07:03] LABS: Mucous, Urine 0 SEEN /hpf (<or=2+); Squamous Epithelial Cells - UA 0 SEEN /hpf (0-5); White Blood Cells 0 SEEN /hpf (0-5)
[2022-06-12 07:07] LABS: Color, Urine Yellow (Yellow); Glucose, Dipstick Normal (Normal); Ketone-Dipstick 5 mg/dl (Negative); Leukocyte Esterase-Dipstick Negative /ul (Negative); Nitrite-Dipstick Negative (Negative); Occult Blood-Urine 50 /ul (Negative); Protein-Dipstick 100 mg/dl (Negative); Urine Bilirubin Dipstick 1 mg/dL (Negative); Urine Clarity Clear (Clear); Urine Urobilinogen 8 mg/dl (Normal); Urine pH 6.5 (5.0 - 8.0)
[2022-06-12 07:16] LABS: Bacteria 1+ /hpf (None Seen); Red Blood Cells-Urine 0-5 SEEN /hpf (0-5)
[2022-06-12] MEDS: Ensure Plus High Protein 120 ML LIQUID PO ×4 (09:07→21:33)
[2022-06-12] MEDS: dexAMETHasone 4 MG Tablet 6 MG PO (09:08)
[2022-06-12] MEDS: Pregabalin 75 MG Capsule 300 MG PO ×2 (09:08→21:29)
[2022-06-12 09:30] LABS: M R Staph aureus DNA By PCR Negative (Negative); Probe Check PASS; Specimen Processing Control PASS
[2022-06-12] MEDS: HYDROmorphone 2 MG TABLET PO ×2 (09:34→18:21)
--- NOTE | 2022-06-12 09:35 | PCM.PN.HOSP ---
Reason for Visit Reason for Visit: Diagnoses Pneumonia due to coronavirus disease 2019 (06/11/22) Pneumonia, unspecified organism (06/11/22) COVID-19 (06/11/22) Subjective Subjective Feeling somewhat better this morning though does continue to have some shortness of breath and has productive cough Objective Data Objective Data Vital Signs: Vital Signs Temp Pulse Resp BP Pulse Ox O2 Del Method O2 Flow Rate 97.7 F L 90 18 137/91 H 96 Nasal Cannula 3 06/12/22 09:14 06/12/22 09:14 06/12/22 09:14 06/12/22 09:14 06/12/22 09:14 06/12/22 09:23 06/12/22 09:14 Oxygen Flow Rate (L/min) 3 Oxygen Delivery Method Nasal Cannula Weight: 90.8 kg Body Mass Index (BMI) 32.1 Intake & Output: Intake and Output for Last 24 Hours 06/10/22 06/11/22 06/12/22 23:59 23:59 23:59 Intake Total 805 / 805 300 / 300 Balance 805 / 805 300 / 300 Lab / Micro Data Result Diagrams: 06/12/22 03:43 06/12/22 03:43 Labs: Laboratory Results - last 24 hr 06/11/22 20:34: WBC 7.7, RBC 4.75, Hgb 13.7, Hct 42.8, MCV 90.1, MCH 28.8, MCHC 32.0, RDW Std Deviation 45.5 H, RDW Coeff of [place] 13.7, Plt Count 188, MPV 10.0, Immature Gran % (Auto) 3.100 H, Neut % (Auto) 84.4 H, Lymph % (Auto) 5.0 L, [place] % (Auto) 6.7, Eos % (Auto) 0.0, Baso % (Auto) 0.8, Absolute Neuts (auto) 6.5, Absolute Lymphs (auto) 0.38 L, Nucleated RBC % 0, Differential Comment SCANNED 06/11/22 20:34: Sodium 136, Potassium 3.4 L, Chloride 104, Carbon Dioxide 28.0, Anion Gap 4 L, BUN 39 H, Creatinine 1.73 H, Estim Creat Clear Calc 39.44, Est GFR (MDRD) Af Amer 51 L, Est GFR (MDRD) Non-Af 43 L, BUN/Creatinine Ratio 22.5 H, Glucose 138 H, Calcium 8.9, Total Bilirubin 2.10 H, AST 284 H, ALT 151 H, Alkaline Phosphatase 224 H, Total Creatine Kinase 70, Troponin I High Sens 15, Total Protein 7.1, Albumin 2.5 L, Globulin 4.6 H, Albumin/Globulin Ratio 0.5 L 06/11/22 20:34: Lactic Acid 3.7 H* 06/11/22 20:34: B-Natriuretic Peptide 12.8 06/11/22 23:55: Procalcitonin 9.81 H 06/11/22 23:55: Troponin I High Sens 16 06/12/22 00:35: MRSA (PCR) Negative 06/12/22 01:03: Lactic Acid 2.4 H* 06/12/22 03:43: WBC 7.4, RBC 4.45 L, Hgb 13.1, Hct 39.5 L, MCV 88.8, MCH 29.4, MCHC 33.2, RDW Std Deviation 44.5 H, RDW Coeff of [place] 13.7, Plt Count 169, MPV 10.0, Immature Gran % (Auto) 2.000 H, Neut % (Auto) 88.3 H, Lymph % (Auto) 4.6 L, [place] % (Auto) 4.7, Eos % (Auto) 0.0, Baso % (Auto) 0.4, Absolute Neuts (auto) 6.5, Absolute Lymphs (auto) 0.34 L, Nucleated RBC % 0, Differential Comment SCANNED 06/12/22 03:43: Sodium 136, Potassium 3.7, Chloride 104, Carbon Dioxide 26.0, Anion Gap 6, BUN 29 H, Creatinine 1.05, Estim Creat Clear Calc 64.98, Est GFR (MDRD) Af Amer 92, Est GFR (MDRD) Non-Af 76, BUN/Creatinine Ratio 27.6 H, Glucose 131 H, Calcium 8.7, Total Bilirubin 1.70 H, AST 259 H, ALT 153 H, Alkaline Phosphatase 212 H, Total Protein 6.8, Albumin 2.4 L, Globulin 4.4 H, Albumin/Globulin Ratio 0.5 L 06/12/22 03:43: Troponin I High Sens 14 06/12/22 04:00: Urine Color Yellow, Urine Clarity Clear, Urine pH 6.5, Ur Specific [place] 1.010, Urine Protein 100 H, Urine Glucose (UA) Normal, Urine Ketones 5 H, Urine Occult Blood 50 H, Urine Nitrite Negative, Urine Bilirubin 1 H, Urine Urobilinogen 8 H, Ur Leukocyte Esterase Negative, Urine RBC 0-5 SEEN, Urine WBC 0 SEEN, Ur Squamous Epith Cells 0 SEEN, Urine Bacteria 1+, Urine Mucus 0 SEEN Micro: Microbiology 06/12/22 04:00 Urine, Clean Catch Legionella Antigen - Final 06/12/22 04:00 Urine, Clean Catch Streptococcus pneumoniae Antigen (M - Final 06/11/22 20:34 Nasal Secretion SARS-CoV-2 & FLU Antigen (Rapid) - Final SARS-CoV-2 (COVID 19) Radiography Diagnostic Testing: Radiology Impression Chest X-Ray 06/11/22 18:52 IMPRESSION: Right midlung consolidation/atelectasis with surrounding infiltrates. Electronically Signed: Jas Major MD at 19:05 EDT , Chest CTA 06/11/22 21:35 IMPRESSION: Substantial right upper lobe consolidation with infiltrates throughout the remaining right lung, compatible with pneumonia. Mediastinal and right hilar lymph nodes are likely reactive. No demonstrated pulmonary embolism or arterial dissection. Electronically Signed: Jas Major MD at 22:22 EDT , Physical Exam Narrative General: Alert, oriented, no apparent distress HEENT: Atraumatic, normocephalic Eyes: Anicteric, normal conjunctiva, extraocular movements grossly intact Neck: Supple Respiratory: Crackles on right side of chest, normal respiratory effort Cardiovascular: Regular rate and rhythm GI: Soft, nontender, nondistended Extremities: No edema Musculoskeletal: Moving all extremities Neuro: No overt focal neurological deficits Skin: No rashes appreciated Psych: Cooperative Assessment & Plan Assessment/Plan (1) Right middle lobe pneumonia: (2) COVID-19: (3) Pneumonia due to COVID-19 virus: PLAN: Plan #Pneumonia secondary to SARS- COV 2 Positive coronavirus test. Negative influenza test. Impression of chest x-ray by radiologist: Right midlung consolidation/atelectasis with surrounding infiltrates. Actual chest x-ray image was independently interpreted. I agree with radiologist interpretation. Follow-up chest CTA?impression by radiologist: Substantial right upper lobe consolidation with infiltrates to the remaining right lung, compatible with pneumonia. Mediastinal and right hilar lymph nodes likely reactive. No demonstrated pulmonary embolism or atrial dissection. Chest CTA was visualized and independently interpreted and I agree with radiologist interpretation. Decadron 6 mg IV ordered at the ED and then started on Decadron 6 mg p.o. daily. Patient is to continue his Paxlovid that he started from home. Tylenol for fever Mucinex ordered -06/12: COVID-positive, other viral respiratory pathogens negative, Legionella urine antigen negative but is positive for pneumococcal pneumonia urine antigen, will order sputum culture to ideally obtain abx susceptibility. With patient improving however may be able to treat empirically if unable to get sputum sample or cultures did not result and will likely be able to treat for 5-7 days #Bacteria Pneumonia, likely pneumococcal Procalcitonin was severely elevated at 9.81. Chest x-ray and CTA with radiographic evidence of bacterial pneumonia. Lactic acid: 3.7. Trended to 2.4. Patient does not meet SIRS criteria to be considered as septic. Azithromycin and ceftriaxone started emergency department and continued. Of note patient cannot take Levaquin as he developed neuropathy with Levaquin and required a pain pump n.p.o. pain medicines. Albuterol inhalation as needed Legionella antigen screen and Strep antigen ordered -06/12: Legionella antigen negative but pneumococcal urine antigen positive, is receiving Rocephin and azithromycin. Sputum culture ordered, will attempt to obtain for susceptibility purposes however if unable to obtain or they do not result can likely treat empirically with oral stepdown and discharge home #Polyuria Urine culture ordered. DVT Prophylaxis: Subcutaneous Lovenox ordered. Charges/Coding Visit Charges Inpatient E&M: 76143 Subs Hosp L2
--- NOTE | 2022-06-12 11:36 | CASEMGMT ---
GAUTAM MCNEIL Assessment: Face to Face with pt for initial transition planning/care coordination assessment. GAUTAM MCNEIL introduced self and role at [facility], pt voices understanding and consents to assessment. Pt is A/O x4 and answers all questions appropriately at this time. Pt lying in bed with oxygen on in no distress. Care providers, pharmacy, and demographics verified/updated. Admitting Dx: COVID-19 pneumonia PCP:Radha Specialists:herman Atkins Preferred Pharmacy: [facility] Insurance: [facility] Prescription Benefit: yes LNOK: Leona Telles dtr Living Arrangements: Pt lives with parents in a two story home with 2-3 steps to enter with a rail. Pt reports he is I in ADL's and denies concerns at home. Transportation: Pt drives self and denies concerns with transportation. DME/HHC/SNF: Pt has a pox at home and grab bar in the tub. Pt denies using AD. Pt denies hx of HHC or SNF stays. Pt states no concerns with going home at time of dc. Discussed should pt need oxygen, verbal local in network list of DME providers, pt chose [employer]. Pt states no further concerns/needs. CM to follow. Advised pt to ask CM if any further question/concerns/needs arise, voices understanding. Pt Goal: Home Plan: Home, follow for oxygen
[2022-06-12] MEDS: NIRMATRELVIR/RITONAVIR 1 EACH TABLET PO ×2 (13:28→21:32)
[2022-06-12] MEDS: Ceftriaxone 1 GM/50 ML BAG IV (21:29)
[2022-06-12] MEDS: Acetaminophen 325 MG Tablet 650 MG PO (21:33)
[2022-06-13] MEDS: HYDROmorphone 2 MG TABLET PO ×2 (00:38→09:11)
[2022-06-13 02:39] VITALS: BP 137/84; PULSE 60; RESP 12; TEMP 36.5; O2SAT 96
[2022-06-13 06:39] LABS: Absolute Lymphocyte Count 0.69 X10^3/uL (0.83-4.51); Absolute Neutrophil Count 8.3 X10^3/uL (2.0-7.7); Basophil# 0.03 X10^3/uL; Basophil% 0.3 % (0-1); Hematocrit 37.6 % (40-54); Hemoglobin 12.4 g/dL (13.0-16.5); Lymphocyte # 0.69 X10^3/ul (0.83-4.51); Lymphocyte % 6.9 % (19-41); Mean Corpuscular Hgb 28.5 pg (27.0-32.0); Mean Corpuscular Volume 86.4 fL (80-94); Mean Platelet Vol. 10.3 fl (6.2-12.0); Monocyte# 0.52 X10^3/uL; Monocyte% 5.2 % (0-10); NRBC Flagged by Analyzer 0 % (0-5); Neutrophil % 82.7 % (47-70); Platelet Count 214 K/mm3 (150-450); RBC Distribution Width CV 13.6 % (11.6-14.6); RBC Distribution Width SD 43.1 fl (35.1-43.9); Red Blood Count 4.35 M/mm3 (4.6-6.2)
[2022-06-13 07:02] LABS: Anion Gap 8 (5-15); BUN 37 mg/dL (7-18); BUN/Creat Ratio 43.5 RATIO (10-20); Calcium,Total 8.9 mg/dL (8.5-10.1); Chloride 105 mmol/L (98-107); Creatinine, Serum 0.85 mg/dL (0.70-1.30); EST Glomerular Filtration Rate 96 mL/min (>60); Est Glom Filt Rate - Afr Amer 117 mL/min (>60); Estimated Creatinine Clearance 80.27 ml/min; Glucose 166 mg/dL (74-106); Potassium 3.5 mmol/L (3.5-5.1); Sodium Level 140 mmol/L (136-145)
[2022-06-13] MEDS: Enoxaparin 30 MG/0.3 ML Syringe SC (09:10)
[2022-06-13] MEDS: guaiFENesin 1,200 MG Tablet 1200 MG PO (09:11)
[2022-06-13] MEDS: dexAMETHasone 4 MG Tablet 6 MG PO (09:11)
[2022-06-13] MEDS: NIRMATRELVIR/RITONAVIR 1 EACH TABLET PO (09:12)
[2022-06-13] MEDS: Ensure Plus High Protein 120 ML LIQUID PO (09:24)
[2022-06-13] MEDS: Pregabalin 75 MG Capsule 300 MG PO (09:25)
[2022-06-13 09:27] VITALS: BP 144/96; PULSE 75; RESP 18; TEMP 36.7; O2SAT 95
[2022-06-13 09:47] VITALS: O2SAT 87; O2SAT 88; O2SAT 91
--- NOTE | 2022-06-13 11:18 | CASEMGMT ---
Pt qualifies for home oxygen. Referral sent to [facility] via [facility] at this time.
--- NOTE | 2022-06-13 11:24 | DS.PCM_ITS ---
Providers Date of Admission: 06/12/22 Date of Discharge: 06/13/22 Primary Care Physician: Dr. Juice Garcia MD Reason For Visit: COVID-19 PNEUMONIA Diagnosis Discharge Diagnosis (1) Right middle lobe pneumonia: Status: Acute Code(s): J18.9 - Pneumonia, unspecified organism (2) COVID-19: Status: Acute Code(s): U07.1 - COVID-19 (3) Pneumonia due to COVID-19 virus: Status: Acute Code(s): U07.1 - COVID-19; J12.82 - Pneumonia due to coronavirus disease 2019 Plan #CAP 2/2 strep pneumoniae #URI 2/2 SARS- COV 2 Medications at Discharge Home Medications pregabalin 300 mg capsule (Lyrica) 300 mg PO BID NERVE PAIN 04/16/13 acetaminophen 325 mg tablet 650 mg PO Q6H PRN PRN Pain Score 1-12/1008/28/19 meloxicam 15 mg tablet 15 mg PO DAILY 12/17/19 albuterol sulfate 90 mcg/actuation aerosol inhaler (Ventolin HFA) 1 - 2 puff inhalation Q4H PRN PRN Wheezing #8.5 grams 06/11/22 hydromorphone 2 mg tablet 2 mg PO Q6H PRN PRN Pain 06/12/22 nirmatrelvir 300 mg (150 mg x2)-ritonavir 100 mg tablet,dose pack(EUA) 3 tab PO BID covid 06/12/22 cefdinir 300 mg capsule 300 mg PO BID 5 days #10 caps 06/13/22 dexamethasone 4 mg tablet 6 mg PO DAILY 8 days #12 tabs 06/13/22 Hospital Course Summary of Care Provided Minutes Spent on Discharge: 31 Hospital Course: GLORIA WATERS, is a 61 M with a previous history of bilateral pneumonia in 2010 with subsequent 8 days intubation and a total of 16 days at a hospital presents to the emergency department with hypoxia. He had 4 days of worsening symptoms and had COVID test prior to presentation that returned positive the day prior to presentation. He was started on Paxlovid outpatient and advised that if his oxygen falls below 92% he should seek further care. Because he was having trouble keeping his oxygen at 90% at home he came to the emergency department. In the ED O2 sat 90% and chest x-ray with right midlung consolidation/atelectasis with surrounding infiltrates. CTA with substantial right upper lobe consolidation with infiltrates to the remaining right lung compatible with pneumonia and mediastinal and right hilar lymph nodes most likely reactive. Given his imaging and risk factors hospitalist called for admission. He was admitted and placed on dexamethasone and Rocephin and azithromycin as his imaging suggestive of bacterial pneumonia and his Pro-Viral 9.81. Lactic acid initially was 3.7 and trended down to 2.4. He improved with that management and strep urine antigen came back positive. On day of discharge he is feeling much better and was ambulated and required 2 L of O2. Still some cough, no other significant complaint. Discharge instructions as follows: -Continue your home medications -Additionally albuterol inhaler was sent to your pharmacy, please use this for 5 to 7 days as needed -You were found to have covid and pneumonia -You will need to take an additional 8 days of dexamethasone starting 06/14 -You will also need to take cefdinir 300 mg twice daily for 5 more days starting 06/14/2022 -These prescriptions have been sent to your preferred pharmacy on file -You will be discharged with oxygen, please wear/use this as prescribed -Please call your primary care provider's office upon discharge to schedule a hospital follow up within 1 week. -For any concerning signs or symptoms please call 911 or proceed to the nearest emergency department Physical Exam Narrative General: Alert, oriented, no apparent distress HEENT: Atraumatic, normocephalic Eyes: Anicteric, normal conjunctiva, extraocular movements grossly intact Neck: Supple Respiratory: C improving aeration, normal respiratory effort Cardiovascular: Regular rate and rhythm GI: Soft, nontender, nondistended Extremities: No edema Musculoskeletal: Moving all extremities Neuro: No overt focal neurological deficits Skin: No rashes appreciated Psych: Cooperative Weight / BMI Weight Weight: 90.8 kg Body Mass Index (BMI) 32.1 ABG / Lab / Microbiology Data Result Diagrams: 06/13/22 06:30 06/13/22 06:30 Laboratory: Laboratory Results - last 24 hr 06/13/22 06:30: WBC 10.0, RBC 4.35 L, Hgb 12.4 L, Hct 37.6 L, MCV 86.4, MCH 28.5, MCHC 33.0, RDW Std Deviation 43.1, RDW Coeff of Francisco 13.6, Plt Count 214, MPV 10.3, Immature Gran % (Auto) 4.900 H, Neut % (Auto) 82.7 H, Lymph % (Auto) 6.9 L, Winston % (Auto) 5.2, Eos % (Auto) 0.0, Baso % (Auto) 0.3, Absolute Neuts (auto) 8.3 H, Absolute Lymphs (auto) 0.69 L, Nucleated RBC % 0 06/13/22 06:30: Sodium 140, Potassium 3.5, Chloride 105, Carbon Dioxide 27.0, Anion Gap 8, BUN 37 H, Creatinine 0.85, Estim Creat Clear Calc 80.27, Est GFR (MDRD) Af Amer 117, Est GFR (MDRD) Non-Af 96, BUN/Creatinine Ratio 43.5 H, Gluc ose 166 H, Calcium 8.9 Microbiology: Microbiology 06/12/22 Unknown Sputum, Expectorated/Coughed Gram Stain - Preliminary 06/12/22 Unknown Sputum, Expectorated/Coughed Respiratory Culture - Preliminary Appears to be normal respiratory nelsy. Further studies to follow. 06/12/22 04:00 Urine, Clean Catch Legionella Antigen - Final 06/12/22 04:00 Urine, Clean Catch Streptococcus pneumoniae Antigen (M - Final 06/11/22 20:34 Nasal Secretion SARS-CoV-2 & FLU Antigen (Rapid) - Final SARS-CoV-2 (COVID 19) D/C Instructions Discharge Diet: No restrictions Meaningful Use Info Meaningful Use Diagnoses (Choose all that apply): None applicable Discharge Plan Admission Admit Date/Time: 06/12/22 14:20 Primary Reason for Your Visit: Covid 19 Attending Provider: Magdalene Gomez Primary Care Provider: Juice Garcia Consulting Providers: Tc Navarro Instructions Patient Instructions: How COVID-19 Spreads Additional Instructions / Restrictions: DISCHARGE INSTRUCTIONS PLEASE READ *Please take this with you to your next doctors appointment* -Continue your home medications -Additionally albuterol inhaler was sent to your pharmacy, please use this for 5 to 7 days as needed -You were found to have covid and pneumonia -You will need to take an additional 8 days of dexamethasone starting 06/14 -You will also need to take cefdinir 300 mg twice daily for 5 more days starting 06/14/2022 -These prescriptions have been sent to your preferred pharmacy on file -You will be discharged with oxygen, please wear/use this as prescribed -Please call your primary care provider's office upon discharge to schedule a hospital follow up within 1 week. -For any concerning signs or symptoms please call 911 or proceed to the nearest emergency department Discharge Orders/Prescriptions Prescriptions: New albuterol sulfate [Ventolin HFA] 90 mcg/actuation HFA aerosol inhaler 1 - 2 puff inhalation Q4H PRN PRN (Reason: Wheezing) Qty: 8.5 0RF dexamethasone 4 mg Tablet 6 mg PO DAILY 8 Days Qty: 12 0RF cefdinir 300 mg capsule 300 mg PO BID 5 Days Qty: 10 0RF Continued pregabalin [Lyrica] 300 MG capsule 300 mg PO BID acetaminophen 325 MG tablet 650 mg PO Q6H PRN PRN (Reason: Pain Score 1-10/10) 0RF meloxicam 15 MG tablet 15 mg PO DAILY nirmatrelvir-ritonavir 300 mg (150 mg x 2)-100 mg tablets,dose pack 3 tab PO BID hydromorphone 2 mg tablet 2 mg PO Q6H PRN PRN (Reason: Pain) Referrals / Follow Up: Juice Garcia MD [Primary Care Provider] - Within 1 Week Care Physician,No Primary [Non-Staff] - Disposition Disposition (needs filled in before D/C Order can be placed): Home, Self Care Charges/Coding Visit Charges Inpatient E&M: 19143 Disch Hosp >30min
--- NOTE | 2022-06-13 12:02 | PHA.DC.MR ---
Pharmacy Service has performed discharge medication reconciliation for this patient. Home Medications pregabalin 300 mg capsule (Lyrica) 300 mg PO BID NERVE PAIN 04/16/13 acetaminophen 325 mg tablet 650 mg PO Q6H PRN PRN Pain Score 1-12/1008/28/19 meloxicam 15 mg tablet 15 mg PO DAILY 12/17/19 albuterol sulfate 90 mcg/actuation aerosol inhaler (Ventolin HFA) 1 - 2 puff inhalation Q4H PRN PRN Wheezing #8.5 grams 06/11/22 hydromorphone 2 mg tablet 2 mg PO Q6H PRN PRN Pain 06/12/22 nirmatrelvir 300 mg (150 mg x2)-ritonavir 100 mg tablet,dose pack(EUA) 3 tab PO BID covid 06/12/22 cefdinir 300 mg capsule 300 mg PO BID 5 days #10 caps 06/13/22 dexamethasone 4 mg tablet 6 mg PO DAILY 8 days #12 tabs 06/13/22 The patient's discharge medication list was reviewed for discrepancies and discrepancies were resolved.
[2022-06-13 12:55] VITALS: BP 142/72; PULSE 67; RESP 18; TEMP 36.9; O2SAT 95
== END 2022-06-13 15:18 | disposition home or self-care (01) | DRG 177 ==
LOC: ED 20:19 → MS3 22:50
PROVIDERS: Admitting Provider Hospitalist; Emergency Provider Emergency Medicine; PCP Family Medicine; Visit Provider Internal Medicine
DX: U07.1 COVID-19 (principal); J12.82 Pneumonia due to coronavirus disease 2019; J13 Pneumonia due to Streptococcus pneumoniae; R09.02 Hypoxemia; R35.89 Other polyuria
CPT/HCPCS: 36415; 71046; 71275; 80048; 80053; 81001; 82550; 83605; 83880; 84145; 84484; 85025; 87070; 87086; 87205; 87428; 87449; 87641; 93005; 94640; 94668; 99252; 99285; J7040; Q9967; A4216; G0463

== ENCOUNTER 2022-06-18 10:43 | Inpatient (IN) | payer MEDICARE, SELFPAY ==
[2022-06-18] VITALS (20 sets, daily range): BP systolic 137–168; BP diastolic 67–95; PULSE 47–85; RESP 10–28; TEMP 36.7–38.7; O2SAT 94–98; BMI 31.5; BMI 28.8
--- NOTE | 2022-06-18 10:49 | EKG12_ITS ---
Test Reason : Blood Pressure : / mmHG Vent. Rate : 069 BPM Atrial Rate : 312 BPM P-R Int : 160 ms QRS Dur : 078 ms QT Int : 404 ms P-R-T Axes : 045 055 050 degrees QTc Int : 432 ms Normal sinus rhythm Junctional ST depression, probably normal Borderline ECG Confirmed by TERESA MCINTOSH, RAJAT ([id number]), state editor TALAT WILLIAM ([id number]) on 06/24/2022 9:47:11 AM Referred By: LUZ Confirmed By:RAJAT MOORE MD
--- NOTE | 2022-06-18 10:52 | EX.ED.DYSGE1 ---
HPI History of Present Illness Chief Complaint: Alt LOC Narrative Narrative: 61-year-old male from home. EMS gives history. Recent admission to [facility] for COVID-pneumonia. Apparently he was last seen well by his daughter yesterday morning. He stated to EMS that they found him unresponsive. Per EMS he has been minimally responsive he is awake and does state his name is Octavio. But this is the only answer he can give. No evidence of trauma. He was placed on nasal cannula prior to come to the ER and EMS did not check his pulse ox prior to coming. They also did not get his name from the daughter who was on scene, because they state she was chasing the dog. Patient initially triaged Octavio Hackett. [facility] Medical History COVID ROS ROS ED Review of Systems ROS Unobtainable: due to mental status EXAM Physical Exam Const Vital Signs: 06/18/22 10:45 06/18/22 10:51 06/18/22 10:51 Temperature 98.2 F 98.2 F Temperature Source Temporal Temporal Pulse Rate 77 78 85 Respiratory Rate 18 28 H 28 H Blood Pressure 162/95 H 162/95 H Blood Pressure Mean 117 117 Pulse Ox 94 94 94 Oxygen Delivery Method Nasal Cannula Nasal Cannula Nasal Cannula Oxygen Flow Rate (L/min) 6 6 6 Positive unkempt General Appearance ED: unkempt; Negative for cyanotic HEENT Reports dry mucous membranes Negative for trauma Mouth ED: Yes dry mucous membranes Mouth: dry mucous membranes Eyes PERRL and EOMs intact bilaterally General Eye ED: Negative for pale conjunctiva or scleral icterus Chest Wall inspection of chest normal Cardio regular rate and regular rhythm GI normal to inspection, nondistended, normoactive bowel sounds Extremity normal to inspection Neuro CN's II-XII intact bilaterally Sensorium / Orientation: confused Psych Appearance: unkempt Skin no rashes or lesions noted and no wounds MDM MDM MDM Narrative Medical decision making narrative: Patient presenting with altered mental status ABG Data ABG results: ABG 06/18/22 10:59 Specimen Type ART Sample Site L Radial pH 7.40 Bicarbonate Actual 16.9 L Total CO2 18 Base Excess -8 L O2 Saturation 95 ABG pCO2 27.6 L ABG pO2 74 L Jaiden Test Positive O2 Delivery Device Cannula Liter Flow 6.0 Discharge Plan Triage Chief Complaint: Alt LOC ED Provider: Alfa Cabello Dx/Rx/DC Orders Primary Care Provider: Care Physician,No Primary Referrals: Care Physician,No Primary [Primary Care Provider] -
--- NOTE | 2022-06-18 10:52 | NURSING ---
NO OLD EKGS
--- NOTE | 2022-06-18 10:58 | ED.RN ---
PER EMS PT WITH RIGHT ARM CONTRACTURE WAS FOUND DOWN ON FLOOR BY SISTER, PT WAS RECENTLY ADMITTED FOR COVID PNEUMONIA. PT WITH UNINTELLIGIBLE SPEECH. DR. ESCOBAR AT BEDSIDE, REPORTS NO STROKE TEAM AT THIS TIME.
[2022-06-18 11:06] LABS: Allen Test Positive; Base Excess -8 mmol/L (-2 to +2); Bicarbonate 16.9 mmol/L (22-26); Blood Gas Specimen Type ART; O2 Delivery Device Cannula; PO2 74 mmHG (75-100); SITE L Radial; SO2 95 % (95-99); Total Carbon Dioxide 18 mmol/L; pCO2 27.6 mmHg (35-45)
[2022-06-18 11:16] LABS: Hematocrit 46.3 % (40-54); Mean Corp Hgb Conc 32.4 g/dL (32-36); Mean Corpuscular Hgb 28.9 pg (27.0-32.0); Mean Corpuscular Volume 89.2 fL (80-94); Mean Platelet Vol. 10.7 fl (6.2-12.0); POSITIVE COUNT YES; POSITIVE DIFFERENTIAL YES; POSITIVE MORPHOLOGY YES; Platelet Count 516 K/mm3 (150-450); RBC Distribution Width CV 13.7 % (11.6-14.6); RBC Distribution Width SD 44.7 fl (35.1-43.9); Red Blood Count 5.19 M/mm3 (4.6-6.2)
[2022-06-18 11:24] LABS: Differential Indicated MANUAL DIFF
[2022-06-18 11:25] LABS: White Blood Count 30.5 K/mm3 (4.4-11.0)
[2022-06-18 11:26] LABS: International Normalized Ratio 1.1; Prothrombin Time (Protime)PT. 14.2 SECONDS (11.7-14.9)
[2022-06-18 11:28] LABS: Bacteria 0 SEEN /hpf (None Seen); Mucous, Urine 0 SEEN /hpf (<or=2+); Red Blood Cells-Urine 0 SEEN /hpf (0-5); Squamous Epithelial Cells - UA 0 SEEN /hpf (0-5); White Blood Cells 0 SEEN /hpf (0-5)
[2022-06-18 11:31] LABS: Color, Urine Yellow (Yellow); Glucose, Dipstick Normal (Normal); Ketone-Dipstick 5 mg/dl (Negative); Leukocyte Esterase-Dipstick Negative /ul (Negative); Nitrite-Dipstick Negative (Negative); Occult Blood-Urine Negative /ul (Negative); Protein-Dipstick 15 mg/dl (Negative); Specific Gravity, Urine 1.015 (1.002-1.030); Urine Bilirubin Dipstick Negative (Negative); Urine Clarity Clear (Clear); Urine Urobilinogen Normal (Normal); Urine pH 6.5 (5.0 - 8.0)
[2022-06-18 11:32] LABS: ALB/GLOB Ratio 0.8 RATIO (0.9-2.4); AST(SGOT) 33 U/L (15-37); Alanine Aminotransfer ALT/SGPT 172 U/L (16-61); Albumin, Serum 2.9 g/dL (3.2-5.0); Alkaline Phosphatase 203 U/L (45-117); Anion Gap 9 (5-15); BUN 30 mg/dL (7-18); BUN/Creat Ratio 25.4 RATIO (10-20); Calcium,Total 8.4 mg/dL (8.5-10.1); Chloride 105 mmol/L (98-107); Creatinine, Serum 1.18 mg/dL (0.70-1.30); EST Glomerular Filtration Rate 66 mL/min (>60); Est Glom Filt Rate - Afr Amer 80 mL/min (>60); Estimated Creatinine Clearance 57.82 ml/min; Globulin 3.8 g/dL (2.2-4.2); Glucose 202 mg/dL (74-106); Protein, Total 6.7 g/dL (6.4-8.2); Sodium Level 137 mmol/L (136-145); Troponin-I HS 14 pg/mL (3.0-78.0)
[2022-06-18 11:34] LABS: CPK Total, Creatine Kinase 72 U/L (39-308)
--- NOTE | 2022-06-18 11:35 | CT_ITS ---
STUDY: CT BRAIN WITHOUT CONTRAST REASON FOR EXAM: Male, 61 years old. Altered mental status. RADIATION DOSAGE (If Supplied By Facility): CTDIvol = ( 44.99 ) mGy, DLP = ( 914.22 ) mGycm TECHNIQUE: Transaxial CT imaging of the brain was performed without administration of intravenous contrast material. Individualized dose optimization techniques were used for this CT. COMPARISON: No relevant priors. FINDINGS: Normal soft tissue structures. Normal calvarium. There is mild cerebral atrophy with widening of the extra-axial spaces and ventricular dilatation. Decreased attenuation in both posterior medial occipital lobes. Ischemic changes should be ruled out. Correlation with enhanced CT scan is recommended. Normal basal ganglia and thalami. Possible focal hypodensity in the kyrie anteriorly. Normal cerebellum. There is no intracranial hemorrhage. There are no findings of an acute ischemic infarction. Normal visualized paranasal sinuses. CT/Brain/Head without Contrast IMPRESSION: Decreased attenuation in the posterior aspects of both occipital lobes with possible focal rounded decreased attenuation in the anterior aspect of the kyrie. Correlation with enhanced CT scan of the brain is recommended. Electronically Signed: Paul Quigley MD at 11:52 EDT ,
[2022-06-18 11:36] LABS: Alcohol, Blood (Medical)-Serum < 3.0 mg/dL
--- NOTE | 2022-06-18 11:40 | RAD_ITS ---
STUDY: X-RAY CHEST REASON FOR EXAM: Male, 61 years old. Shortness of breath. Altered mental status. TECHNIQUE: Single AP portable view of the chest. COMPARISON: Comparison is made with prior study June 11, 2022. FINDINGS: EKG electrodes are seen. Elevation of the right hemidiaphragm. Persistent infiltrate in the right upper lobe. Mild increased markings at both lung bases. The right upper lobe infiltrate as improved as compared to prior study. There is no demonstrated pleural abnormality. Normal size heart. Normal mediastinum and keturah. Normal visualized pulmonary arteries. Normal visualized aortic arch and descending thoracic aorta. Normal visualized thoracic spine. There is degenerative osteoarthritis of the bilateral shoulders. There is no demonstrated abnormality of the visualized soft tissue structures of the upper abdomen. RAD/Chest 1 View (Portable) IMPRESSION: Improved aeration of the right upper lobe pulmonary infiltrate with residual changes present. Increased markings at the lung bases bilaterally. Electronically Signed: Paul Quigley MD at 11:57 EDT ,
[2022-06-18 11:45] LABS: Lactic Acid 7.3 mmol/L (0.4-1.9)
[2022-06-18 11:46] LABS: Amphetamine Urine VISTA NEGATIVE (<1000 ng/mL); Barbiturate Urine VISTA NEGATIVE (< 200 ng/mL); Benzodiazepine Urine VISTA NEGATIVE (< 200 ng/mL); Cocaine Urine VISTA NEGATIVE (< 300 ng/mL); Ecstacy Urine VISTA NEGATIVE (< 500 ng/mL); Methadone Urine VISTA NEGATIVE (< 300 ng/mL); PCP Urine VISTA NEGATIVE (< 25 ng/mL); THC Urine VISTA POSITIVE (< 50 ng/mL); Vista UDS pH Range 6
[2022-06-18] MEDS: 0.9% Normal Saline 1,000 ML 999 ML IV ×2 (11:48→13:10)
[2022-06-18 11:50] LABS: Lymphocyte 9 % (19-41); Monocyte 2 % (0-10); Myelocyte 2 % (0-0); Neutrophil-Segmented 87 % (47-70); Total Cells Counted 100 (MANUAL DIFF)
[2022-06-18 11:51] LABS: Absolute Neutrophil Count 26.5 X10^3/uL (2.0-7.7); Platelet Estimate ADEQUATE (ADEQ); Red Cell Morphology NORM C+C NORMAL (NORM C&C)
[2022-06-18 11:52] LABS: Absolute Lymphocyte Count 2.75 X10^3/uL (0.83-4.51)
--- NOTE | 2022-06-18 11:57 | CT_ITS ---
STUDY: CTA HEAD AND NECK WITH CONTRAST REASON FOR EXAM: Male, 61 years old. ams RADIATION DOSAGE (If Supplied By Facility): CTDIvol = ( 17.73 ) mGy, DLP = ( 721.25 ) mGycm TECHNIQUE: CT angiography was performed with a multi-detector CT scanner. Data acquisition was obtained from the skull base through the vertex following intravenous administration of IV 100mL [id number]. MIP images were reconstructed from the axial data set. Post-processing of the angiographic images was performed, with multiplanar reformation and 3D reconstruction. Individualized dose optimization techniques were used for this CT. COMPARISON: No relevant priors. FINDINGS: Normal bilateral petrous carotid arteries. Normal right cavernous carotid artery with a normal supraclinoid bifurcation. Normal left cavernous carotid artery with a normal supraclinoid bifurcation. There is hypoplastic development of the right A1 segment of the anterior cerebral arteries with an atretic but intact artery. Normal left A1 segments of the anterior cerebral artery. Normal intact anterior communicating artery (ACOM). Normal bilateral A2 segments of the anterior cerebral arteries. Normal right M1 and M2 segments of the middle cerebral arteries, with a normal M1 bifurcation. Normal left M1 and M2 segments of the middle cerebral arteries, with a normal M1 bifurcation. Normal right posterior communicating artery (PCOM). Normal left posterior communicating artery (PCOM). Normal bilateral vertebral arteries. Normal basilar artery with a normal basilar bifurcation. The visualized bilateral superior cerebellar (SCA) arteries are normal. Normal bilateral P1, P2 and visualized P3 segments of the posterior cerebral arteries. There is no demonstrated aneurysm of the knik of [place]. There is no demonstrated abnormality of the visualized brain. AORTIC ARCH: There is a bovine origin of the great vessels arising from the aortic arch with a common origin of the brachiocephalic and left common carotid artery. Normal origin of the left subclavian artery. RIGHT CAROTID ARTERIES: Normal right common carotid artery (CCA). Normal right common carotid bulb. Normal origin of the right internal carotid (ICA) artery without a hemodynamically significant stenosis. Normal visualized cervical portion of the right internal carotid artery. Normal origin of the right external carotid artery (ECA). LEFT CAROTID ARTERIES: Normal left common carotid artery (CCA). Normal left common carotid bulb. Normal origin of the left internal carotid (ICA) artery without a hemodynamically significant stenosis. Normal visualized cervical portion of the left internal carotid artery. Normal origin of the left external carotid artery (ECA). VERTEBRAL ARTERIES: There is enhancement within the bilateral vertebral arteries with a small right vertebral artery, and a dominant left vertebral artery. Heterogeneous consolidation in the right upper lobe with areas of the cystic change. CT/CTA Head AND Neck W/ Contrast IMPRESSION: Normal CTA Head and neck with contrast. Electronically Signed: Paul Quigley MD at 12:48 EDT ,
--- NOTE | 2022-06-18 15:00 | NURSING ---
[facility]
--- NOTE | 2022-06-18 15:01 | ED.VIS.STROK ---
HPI History of Present Illness Chief Complaint: Alt LOC Narrative Narrative: 61-year-old male from home. EMS gives history. Recent admission to [facility] for COVID-pneumonia. Apparently he was last seen well by his daughter yesterday morning. He stated to EMS that they found him unresponsive. Per EMS he has been minimally responsive he is awake and does state his name is Octavio. But this is the only answer he can give. No evidence of trauma. He was placed on nasal cannula prior to come to the ER and EMS did not check his pulse ox prior to coming. They also did not get his name from the daughter who was on scene, because they state she was chasing the dog. Patient initially triaged Octavio Hackett. [facility] Medical History COVID Home Medications albuterol sulfate 90 mcg/actuation aerosol inhaler 1 - 2 inh inhalation Q4H PRN Wheezing 06/18/22 [History Last Taken Unknown] cefdinir 300 mg capsule 300 mg PO BID INFECTION 06/18/22 [History Last Taken Unknown] dexamethasone 4 mg tablet 6 mg PO DAILY BREATHING 06/18/22 [History Last Taken Unknown] hydromorphone 2 mg tablet 2 mg PO Q6H PRN Pain 06/18/22 [History Last Taken Unknown] meloxicam 15 mg tablet 15 mg PO DAILY PAIN 06/18/22 [History Last Taken Unknown] pregabalin 300 mg capsule 300 mg PO BID PAIN 06/18/22 [History Last Taken Unknown] Allergy/AdvReac Type Severity Reaction Status Date / Time levofloxacin Allergy Other Verified 06/18/22 12:59 Social History Smoking Status: Former smoker ROS ROS ED Review of Systems ROS Unobtainable: due to mental condition and due to mental status EXAM Physical Exam Const Vital Signs: 06/18/22 10:45 06/18/22 10:51 06/18/22 10:51 Temperature 98.2 F 98.2 F Temperature Source Temporal Temporal Pulse Rate 77 78 85 Respiratory Rate 18 28 H 28 H Blood Pressure 162/95 H 162/95 H Blood Pressure Mean 117 117 Pulse Ox 94 94 94 Oxygen Delivery Method Nasal Cannula Nasal Cannula Nasal Cannula Oxygen Flow Rate (L/min) 6 6 6 06/18/22 11:59 06/18/22 11:59 06/18/22 12:04 Temperature 98.5 F 98.5 F Temperature Source Temporal Temporal Pulse Rate 57 L 57 L 58 L Respiratory Rate 13 13 11 L Blood Pressure 168/88 H 168/88 H 138/88 H Blood Pressure Mean 114 114 104 Pulse Ox 96 96 95 Oxygen Delivery Method Nasal Cannula Nasal Cannula Nasal Cannula Oxygen Flow Rate (L/min) 5 5 5 06/18/22 13:21 06/18/22 14:18 06/18/22 15:00 Temperature 98.1 F Temperature Source Temporal Pulse Rate 66 69 57 L Respiratory Rate 10 L 19 H 19 H Blood Pressure 168/88 H 155/88 H Blood Pressure Mean 114 110 Pulse Ox 95 95 97 Oxygen Delivery Method Nasal Cannula Nasal Cannula Nasal Cannula Oxygen Flow Rate (L/min) 5 5 Positive well nourished General Appearance ED: NAD HEENT Reports moist mucous membranes Eyes PERRL Chest Wall inspection of chest normal and palpation of chest normal Resp normal respiratory effort Auscultation: Negative for rales or rhonchi GI GI Narrative: Not apparently tender Neuro [place] Coma Scale: document GCS findings To Voice Withdraws to Pain Confused 11 Sensorium / Orientation: alert Skin no wounds MDM MDM MDM Narrative Medical decision making narrative: Patient presenting with altered mental status. Differential this point includes stroke, intracranial hemorrhage, rhabdomyolysis, dehydration, drug overdose, ACS, DKA, pneumonia, sepsis, septic shock, UTI. The only word I am able to get from him is he is in the first name Octavio. He is responding to all questioning this way. Per EMS he was last seen well 24 hours ago. Recent diagnosis of COVID-19 and is apparently on home oxygen. He is not able to provide any history. On examination he does appear to be holding his right arm in a flexed position against his chest. He was able to raise his arms upward and follow this command 1 time. The left arm appeared to extend farther than the right arm. Again he holds the right arm against his chest. There was noted history of drug abuse. His pupils are not pinpoint. He is tracking me when I pulled his eyelids up. Pupils are equal and reactive to light. Patient unable to answer questions. Patient outside tPA window. No stroke team was called. Given recent COVID-pneumonia sepsis work-up was pursued as well as a CT of the brain. Patient was pancultured. Patient CBC shows a leukocytosis of 30.5. Hemoglobin 15, hematocrit 46.3. Platelets 516 and therefore high. PT and INR normal. LFTs slightly elevated but improved from previous. Bilirubin is decreased as well. Glucose 202 without anion gap. Patient with unknown downtime I did have a CPK ordered. Lactic acid came back at 7.3. At this point patient had already received a liter but we will give him 30/kg of normal saline. Has not been hypotensive or tachycardic. He is 94% on 6 L initially and currently 5 L at 97%. Urinalysis negative for infection. Chest x-ray on my interpretation shows improvement of previous pneumonia. CT brain was initially ordered due to the patient's altered mental status and this showed decreased attenuation in the posterior aspects of both occipital lobes with possible focal rounded decreased attenuation in the anterior aspect of the kyrie. At this point I was able to find his sister who was in the emergency room although she was in the emergency room with his mother. Apparently she has been ill as well and needed to be evaluated. After speaking with the sister the patient's last known well was last night somewhat him around 10. She herself brought him and his mother some food at 7. She states her daughter last saw them in about 10. Given this and his symptoms I did obtain a CTA to rule out LVO and this was negative for acute findings. Patient does not show any clinical improvement in his mentation although his vital signs are stable. He was given vancomycin and Zosyn to cover for pneumonia. This patient was discussed with the hospitalist for admission. Hospitalist recommended ICU given the patient's condition. Impression: 1. Altered mental status 2. Leukocytosis 3. Septic shock 4. Leukocytosis Lab Data Labs: Laboratory Results - last 24 hr 06/18/22 06/18/22 06/18/22 10:50 10:50 10:50 WBC 30.5 H* RBC 5.19 Hgb 15.0 Hct 46.3 MCV 89.2 MCH 28.9 MCHC 32.4 RDW Std Deviation 44.7 H RDW Coeff of Francisco 13.7 Plt Count 516 H MPV 10.7 Neut % (Auto) Not Reportable Absolute Neuts (auto) 26.5 H Absolute Lymphs (auto) 2.75 Total Counted 100 Neutrophils % (Manual) 87 H Lymphocytes % (Manual) 9 L Monocytes % (Manual) 2 Myelocytes % 2 H Diff Path Review May foll Platelet Estimate ADEQUATE RBC Morphology NORM C+C PT 14.2 INR 1.1 Sodium 137 Potassium 4.0 Chloride 105 Carbon Dioxide 23.0 Anion Gap 9 BUN 30 H Creatinine 1.18 Estim Creat Clear Calc 57.82 Est GFR (MDRD) Af Amer 80 Est GFR (MDRD) Non-Af 66 BUN/Creatinine Ratio 25.4 H Glucose 202 H Lactic Acid Calcium 8.4 L Total Bilirubin 0.70 AST 33 ALT 172 H Alkaline Phosphatase 203 H Total Creatine Kinase Troponin I High Sens 14 Total Protein 6.7 Albumin 2.9 L Globulin 3.8 Albumin/Globulin Ratio 0.8 L Urine Color Urine Clarity Urine pH Ur Specific [place] Urine Protein Urine Glucose (UA) Urine Ketones Urine Occult Blood Urine Nitrite Urine Bilirubin Urine Urobilinogen Ur Leukocyte Esterase Urine RBC Urine WBC Ur Squamous Epith Cells Urine Bacteria Urine Mucus Urine Opiates Screen Urine Methadone Screen Ur Barbiturates Screen Ur Phencyclidine Scrn Ur Amphetamines Screen MDMA (Ecstasy) Screen U Benzodiazepines Scrn Urine Cocaine Screen U Cannabinoids Screen Ur Drug Screen Comment Ethyl Alcohol 06/18/22 06/18/22 06/18/22 10:50 10:50 11:05 WBC RBC Hgb Hct MCV MCH MCHC RDW Std Deviation RDW Coeff of Francisco Plt Count MPV Neut % (Auto) Absolute Neuts (auto) Absolute Lymphs (auto) Total Counted Neutrophils % (Manual) Lymphocytes % (Manual) Monocytes % (Manual) Myelocytes % Diff Path Review Platelet Estimate RBC Morphology PT INR Sodium Potassium Chloride Carbon Dioxide Anion Gap BUN Creatinine Estim Creat Clear Calc Est GFR (MDRD) Af Amer Est GFR (MDRD) Non-Af BUN/Creatinine Ratio Glucose Lactic Acid 7.3 H* Calcium Total Bilirubin AST ALT Alkaline Phosphatase Total Creatine Kinase 72 Troponin I High Sens Total Protein Albumin Globulin Albumin/Globulin Ratio Urine Color Urine Clarity Urine pH Ur Specific [place] Urine Protein Urine Glucose (UA) Urine Ketones Urine Occult Blood Urine Nitrite Urine Bilirubin Urine Urobilinogen Ur Leukocyte Esterase Urine RBC Urine WBC Ur Squamous Epith Cells Urine Bacteria Urine Mucus Urine Opiates Screen Urine Methadone Screen Ur Barbiturates Screen Ur Phencyclidine Scrn Ur Amphetamines Screen MDMA (Ecstasy) Screen U Benzodiazepines Scrn Urine Cocaine Screen U Cannabinoids Screen Ur Drug Screen Comment Ethyl Alcohol < 3.0 06/18/22 06/18/22 11:20 11:20 WBC RBC Hgb Hct MCV MCH MCHC RDW Std Deviation RDW Coeff of [place] Plt Count MPV Neut % (Auto) Absolute Neuts (auto) Absolute Lymphs (auto) Total Counted Neutrophils % (Manual) Lymphocytes % (Manual) Monocytes % (Manual) Myelocytes % Diff Path Review Platelet Estimate RBC Morphology PT INR Sodium Potassium Chloride Carbon Dioxide Anion Gap BUN Creatinine Estim Creat Clear Calc Est GFR (MDRD) Af Amer Est GFR (MDRD) Non-Af BUN/Creatinine Ratio Glucose Lactic Acid Calcium Total Bilirubin AST ALT Alkaline Phosphatase Total Creatine Kinase Troponin I High Sens Total Protein Albumin Globulin Albumin/Globulin Ratio Urine Color Yellow Urine Clarity Clear Urine pH 6.5 Ur Specific [place] 1.015 Urine Protein 15 H Urine Glucose (UA) Normal Urine Ketones 5 H Urine Occult Blood Negative Urine Nitrite Negative Urine Bilirubin Negative Urine Urobilinogen Normal Ur Leukocyte Esterase Negative Urine RBC 0 SEEN Urine WBC 0 SEEN Ur Squamous Epith Cells 0 SEEN Urine Bacteria 0 SEEN Urine Mucus 0 SEEN Urine Opiates Screen POSITIVE H Urine Methadone Screen NEGATIVE Ur Barbiturates Screen NEGATIVE Ur Phencyclidine Scrn NEGATIVE Ur Amphetamines Screen NEGATIVE MDMA (Ecstasy) Screen NEGATIVE U Benzodiazepines Scrn NEGATIVE Urine Cocaine Screen NEGATIVE U Cannabinoids Screen POSITIVE H Ur Drug Screen Comment Ethyl Alcohol ABG Data ABG results: ABG 06/18/22 10:59 Specimen Type ART Sample Site L Radial pH 7.40 Bicarbonate Actual 16.9 L Total CO2 18 Base Excess -8 L O2 Saturation 95 ABG pCO2 27.6 L ABG pO2 74 L Jaiden Test Positive O2 Delivery Device Cannula Liter Flow 6.0 Radiography Diagnostic Testing: Clinical Impression(s) from Imaging Studies Brain CT 06/18/22 11:35 IMPRESSION: Decreased attenuation in the posterior aspects of both occipital lobes with possible focal rounded decreased attenuation in the anterior aspect of the kyrie. Correlation with enhanced CT scan of the brain is recommended. Electronically Signed: Paul Quigley MD at 11:52 EDT , Chest X-Ray 06/18/22 11:40 IMPRESSION: Improved aeration of the right upper lobe pulmonary infiltrate with residual changes present. Increased markings at the lung bases bilaterally. Electronically Signed: Paul Quigley MD at 11:57 EDT , Head/Neck CTA 06/18/22 11:57 IMPRESSION: Normal CTA Head and neck with contrast. Electronically Signed: Paul Quigley MD at 12:48 EDT , Discharge Plan Disposition Disposition: Acute Care Hospital [facility] Discharge Date/Time: 06/18/22 15:45
[2022-06-18 15:14] LABS: Reflex Lactate? Y
--- NOTE | 2022-06-18 15:24 | TELEMED_ITS ---
[facility] Tele[facility] has confirmed receipt of a request for visit. This document confirms receipt of the order initiating the consult. To find the results of the consultation, please view the patient's reports for the scanned Telemed Consult.
[2022-06-18] MEDS: Aspirin 300 MG Suppository RC (15:32)
--- NOTE | 2022-06-18 15:33 | NURSING ---
ICU 3
[2022-06-18] MEDS: KCl 20MEQ in D5NS 20 MEQ/1,000 ML IV.SOLN. 100 MEQ IV (16:07)
--- NOTE | 2022-06-18 16:27 | PCM.HP.STD ---
HPI - General General Date of Admission: 06/18/22 Date of Service: 06/18/22 Chief Complaint: Change in mental status, found down. HPI Narrative GLORIA WATERS, is a 61 M with a history of chronic pain and who has a pain pump. Patient also recently admitted to the hospital for COVID-19 infection with pneumonia and respiratory failure. Was actually discharged home on supplemental oxygen. Last known well was last night at about 10 PM and patient was noted to be doing fairly well. This morning was found down and unable to get up. Patient was poorly responsive. Was only able to say a few single words. Per the patient's sister who provides all of the history, patient attempted to sit up but kept collapsing back down. EMS was called and patient picked up and brought to the hospital. Here patient only able to respond with grunts and only opens eyes to painful tactile stimulation. COUNT INCLUDES THE [facility] Medical History COVID Home Medications albuterol sulfate 90 mcg/actuation aerosol inhaler 1 - 2 inh inhalation Q4H PRN Wheezing 06/18/22 [History Last Taken Unknown] cefdinir 300 mg capsule 300 mg PO BID INFECTION 06/18/22 [History Last Taken Unknown] dexamethasone 4 mg tablet 6 mg PO DAILY BREATHING 06/18/22 [History Last Taken Unknown] hydromorphone 2 mg tablet 2 mg PO Q6H PRN Pain 06/18/22 [History Last Taken Unknown] meloxicam 15 mg tablet 15 mg PO DAILY PAIN 06/18/22 [History Last Taken Unknown] pregabalin 300 mg capsule 300 mg PO BID PAIN 06/18/22 [History Last Taken Unknown] Allergy/AdvReac Type Severity Reaction Status Date / Time levofloxacin Allergy Other Verified 06/18/22 12:59 Family History unable to obtain unable to obtain Surgical History unable to obtain unable to obtain Social History Smoking Status: Former smoker ROS ROS Narrative Unable to obtain as patient is nonverbal and encephalopathic. Vital Signs Vital Signs Vital Signs: 06/18/22 10:45 06/18/22 10:51 06/18/22 10:51 Temperature 36.8 C 36.8 C Temperature Source Temporal Temporal Pulse Rate 77 78 85 Respiratory Rate 18 28 H 28 H Blood Pressure 162/95 H 162/95 H Blood Pressure Mean 117 117 Pulse Ox 94 94 94 Oxygen Delivery Method Nasal Cannula Nasal Cannula Nasal Cannula Oxygen Flow Rate (L/min) 6 6 6 06/18/22 11:59 06/18/22 11:59 06/18/22 12:04 Temperature 36.9 C 36.9 C Temperature Source Temporal Temporal Pulse Rate 57 L 57 L 58 L Respiratory Rate 13 13 11 L Blood Pressure 168/88 H 168/88 H 138/88 H Blood Pressure Mean 114 114 104 Pulse Ox 96 96 95 Oxygen Delivery Method Nasal Cannula Nasal Cannula Nasal Cannula Oxygen Flow Rate (L/min) 5 5 5 06/18/22 13:21 06/18/22 14:18 06/18/22 15:00 Temperature 36.7 C Temperature Source Temporal Pulse Rate 66 69 57 L Respiratory Rate 10 L 19 H 19 H Blood Pressure 168/88 H 155/88 H Blood Pressure Mean 114 110 Pulse Ox 95 95 97 Oxygen Delivery Method Nasal Cannula Nasal Cannula Nasal Cannula Oxygen Flow Rate (L/min) 5 5 06/18/22 16:15 Temperature Temperature Source Pulse Rate Respiratory Rate Blood Pressure Blood Pressure Mean Pulse Ox 97 Oxygen Delivery Method Nasal Cannula Oxygen Flow Rate (L/min) 5 Weight Weight: 88.6 kg Body Mass Index (BMI) 31.5 Physical Exam Narrative General exam. Middle-aged man, appears older than stated age, poorly kempt, chronically ill-appearing, acutely ill-appearing, stuporous, aphasic not following commands. HEENT. Oral mucosa dry, no pallor or jaundice Neck. Neck is supple Lungs. Few transmitted sounds but distant air entry bilaterally. Heart. This is a consulted no murmurs. Abdomen. Obese, nontender no organomegaly. Extremities. No pedal edema. [employer]. Patient is stuporous, GCS 9/15, and on application of painful stimuli appears to have grade 1-2/5 power in the right upper extremity all other extremities at least 4+/5. Difficult to determine if there is facial asymmetry. Both pupils are equal and reactive. Deep tendon reflexes exaggerated globally at 3/4. Results Medical Records Data Attestation: I reviewed the patient's medical records Lab / Micro Data Attestation: I reviewed the patient's lab results. Result Diagrams: 06/18/22 10:50 06/18/22 10:50 Labs: Laboratory Results - last 24 hr 06/18/22 10:50: WBC 30.5 H*, RBC 5.19, Hgb 15.0, Hct 46.3, MCV 89.2, MCH 28.9, MCHC 32.4, RDW Std Deviation 44.7 H, RDW Coeff of Francisco 13.7, Plt Count 516 H, MPV 10.7, Neut % (Auto) Not Reportable, Absolute Neuts (auto) 26.5 H, Absolute Lymphs (auto) 2.75, Total Counted 100, Neutrophils % (Manual) 87 H, Lymphocytes % (Manual) 9 L, Monocytes % (Manual) 2, Myelocytes % 2 H, Diff Path Review July, Platelet Estimate ADEQUATE, RBC Morphology NORM C+C 06/18/22 10:50: PT 14.2, INR 1.1 06/18/22 10:50: Sodium 137, Potassium 4.0, Chloride 105, Carbon Dioxide 23.0, Anion Gap 9, BUN 30 H, Creatinine 1.18, Estim Creat Clear Calc 57.82, Est GFR (MDRD) Af Amer 80, Est GFR (MDRD) Non-Af 66, BUN/Creatinine Ratio 25.4 H, Glucose 202 H, Calcium 8.4 L, Total Bilirubin 0.70, AST 33, ALT 172 H, Alkaline Phosphatase 203 H, Troponin I High Sens 14, Total Protein 6.7, Albumin 2.9 L, Globulin 3.8, Albumin/Globulin Ratio 0.8 L 06/18/22 10:50: Total Creatine Kinase 72 06/18/22 10:50: Ethyl Alcohol < 3.0 06/18/22 11:05: Lactic Acid 7.3 H* 06/18/22 11:20: Urine Color Yellow, Urine Clarity Clear, Urine pH 6.5, Ur Specific [place] 1.015, Urine Protein 15 H, Urine Glucose (UA) Normal, Urine Ketones 5 H, Urine Occult Blood Negative, Urine Nitrite Negative, Urine Bilirubin Negative, Urine Urobilinogen Normal, Ur Leukocyte Esterase Negative, Urine RBC 0 SEEN, Urine WBC 0 SEEN, Ur Squamous Epith Cells 0 SEEN, Urine Bacteria 0 SEEN, Urine Mucus 0 SEEN 06/18/22 11:20: Urine Opiates Screen POSITIVE H, Urine Methadone Screen NEGATIVE, Ur Barbiturates Screen NEGATIVE, Ur Phencyclidine Scrn NEGATIVE, Ur Amphetamines Screen NEGATIVE, MDMA (Ecstasy) Screen NEGATIVE, U Benzodiazepines Scrn NEGATIVE, Urine Cocaine Screen NEGATIVE, U Cannabinoids Screen POSITIVE H, Ur Drug Screen Comment ABG Data ABG results: ABG 06/18/22 10:59 Specimen Type ART Sample Site L Radial pH 7.40 Bicarbonate Actual 16.9 L Total CO2 18 Base Excess -8 L O2 Saturation 95 ABG pCO2 27.6 L ABG pO2 74 L Jaiden Test Positive O2 Delivery Device Cannula Liter Flow 6.[address] 06/18/22 11:35 IMPRESSION: Decreased attenuation in the posterior aspects of both occipital lobes with possible focal rounded decreased attenuation in the anterior aspect of the kyrie. Correlation with enhanced CT scan of the brain is recommended. Electronically Signed: Paul Quigley MD at 11:52 EDT , Chest X-Ray 06/18/22 11:40 IMPRESSION: Improved aeration of the right upper lobe pulmonary infiltrate with residual changes present. Increased markings at the lung bases bilaterally. Electronically Signed: Paul Quigley MD at 11:57 EDT , Head/Neck CTA 06/18/22 11:57 IMPRESSION: Normal CTA Head and neck with contrast. Electronically Signed: Paul Quigley MD at 12:48 EDT , Assessment & Plan Assessment/Plan (1) Acute encephalopathy: (2) Severe sepsis: PLAN: Plan 1. Acute encephalopathy. Unclear etiology however given the neurological deficits (paucity of right upper extremity movements and aphasia) noted on examination will need to consider acute ischemic left MCA stroke. Possibly cortical. CT and CT angiogram negative for any large vessel occlusions. Patient has a pain pump so may not be able to get an MRI. We will consult neurology and place patient on stroke protocol and frequent neurological reassessments. Keep patient n.p.o. Consult speech therapy. Will need to consider other possibilities such as toxicities from medications or severe sepsis. Urine toxicology positive for opiates (patient is on prescription opiates) and cannabis. Will check ammonia levels. Patient will be admitted to the intensive care unit for close monitoring. 2. Severe sepsis possibly secondary to pneumonia (possible aspiration). Right middle lobe infiltrate noted on chest x-ray with leukocytosis of 30,000, lactic acidosis and change in mental status. We will follow-up on blood cultures and urine cultures. IV antibiotics with Zosyn 3.75 g every 8 hours and IV vancomycin and 1 g every 12. 3. Hyperglycemia. Possibly stress induced. Check A1c. Given possible stroke will aim to keep blood glucose between 100 - 180 mg per DL. Patient n.p.o. so we will keep on D5 normal saline. Accu-Cheks every 6 hours with correctional scale. Sepsis Attestation Sepsis Alert: Yes Sepsis Attestation: Agree w/Sepsis Date exam was performed: 06/18/22 Time exam was performed: 14:00 Possible Source of Sepsis: Pulmonary Sepsis Organ Dysfunction Criteria Present: Lactic Acid > 2 mmol/L and New/Unexplained change in mental status Fluid Resuscitation Fluid resuscitation indicated?: Yes Fluid Resuscitation ordered: 30 ml/kg fluid bolus ordered Charges/Coding Visit Charges Inpatient E&M: 03703 Init Hosp L3
--- NOTE | 2022-06-18 16:36 | ECHOD_ITS ---
Reason For Study: TIA/CVA Procedure This was a limited 2D transthoracic echocardiogram. Exam performed portable in ICU/CCU. The exam was abbreviated due to the COVID 19 protocol. Left Ventricle Normal left ventricle. The estimated ejection fraction is 60-65 %. Right Ventricle Normal right ventricle. Normal systolic function. Atria Normal left atrium. Normal right atrium. Mitral Valve The mitral valve is structurally normal. No prolapse or stenosis seen. Trivial mitral valve insufficiency. Tricuspid Valve Normal tricuspid valve. No tricuspid valve insufficiency. Aortic Valve Normal aortic valve. Pulmonic Valve The pulmonic valve is not well visualized. Great Vessels Normal aortic root. Pericardium/Pleural No pericardial effusion. Medication Performed a rapid injection of agitated mix of 9 cc saline and 1cc air to assess for atrial septal defect. MMode/2D Measurements & Calculations LVIDd: 4.3 cm IVSd: 1.2 cm Ao root diam: 3.7 cm LVIDs: 3.1 cm LVPWd: 0.97 cm FS: 27.0 % LVAd ap4: 22.8 cm2 SV(MOD-sp4): 33.4 ml SV(sp4-el): 35.7 ml LVLd ap4: 8.1 cm EDV(MOD-sp4): 53.8 ml EDV(sp4-el): 54.5 ml LVAs ap4: 12.7 cm2 LVLs ap4: 7.2 cm ESV(MOD-sp4): 20.4 ml ESV(sp4-el): 18.8 ml EF(MOD-sp4): 62.1 % EF(sp4-el): 65.4 % Doppler Measurements & Calculations TR max ramses: 245.4 cm/sec TR max P.1 mmHg ECHO/Echo Complete Interpretation Summary The estimated ejection fraction is 60-65 %. Limited study with overall normal LV systolic function No prior study to compare Ordering Physician: Dwight Bustillos Referring Physician: Juice Garcia Performed By: Aidee Colón, JORGE LUIS, RVT
[2022-06-18 16:37] LABS: Troponin-I HS 61 pg/mL (3.0-78.0)
[2022-06-18 16:39] LABS: Lactic Acid 3.2 mmol/L (0.4-1.9)
[2022-06-18 17:41] LABS: Bedside Glucose 125 mg/dL (74-106)
--- NOTE | 2022-06-18 18:00 | PCM.RX.CS ---
Consult Pharmacy has been consulted to manage selected antiobiotic: Vancomycin Type of Consult: New start Suspected Infection: Pneumonia Labs: Sodium 137 mmol/L (136-145) 06/18/22 10:50 Potassium 4.0 mmol/L (3.5-5.1) 06/18/22 10:50 Chloride 105 mmol/L (98-107) 06/18/22 10:50 Carbon Dioxide 23.0 mmol/L (21.0-32.0) 06/18/22 10:50 Anion Gap 9 (5-15) 06/18/22 10:50 BUN 30 mg/dL (7-18) H 06/18/22 10:50 Creatinine 1.18 mg/dL (0.70-1.30) 06/18/22 10:50 Est GFR (MDRD) Af Amer 80 mL/min (>60) 06/18/22 10:50 Est GFR (MDRD) Non-Af 66 mL/min (>60) 06/18/22 10:50 BUN/Creatinine Ratio 25.4 RATIO (10-20) H 06/18/22 10:50 Glucose 202 mg/dL (74-106) H 06/18/22 10:50 Goal Trough: 10-15 mcg/mL Pharmacy Plan for Drug Dosing: NEW START IV VANCOMYCIN Consulting Physician: Dr. Rich Bustillos Indication: Pneumonia (pt not septic) Goal Trough: 10-15 SrCr: 1.18 CrCl: 57.82 mls/min Comments: pt received a 2000mg x1 dose in the ER on 06/18/22 at 1417 Vancomycin Dose: based on pts weight and renal function, recommend an initial dose of 1750mg q24h starting 06/19/22 at 1400. trough before the 3rd total dose Pending Level: 06/20/22 at 1330 Pharmacy Service will continue to monitor and adjust dosing as required. Follow-Up Labs: Trough Vancomycin - 06/20/22 at 1330
--- NOTE | 2022-06-18 18:39 | NURSING ---
1600 & 1800 nih criteria completed with what pt able to do
[2022-06-19] VITALS (22 sets, daily range): BP systolic 57–186; BP diastolic 34–113; PULSE 51–131; RESP 14–22; TEMP 38.1–38.7; O2SAT 93–100; BMI 29.0
[2022-06-19] MEDS: KCl 20MEQ in D5NS 20 MEQ/1,000 ML IV.SOLN. 100 MEQ IV ×2 (00:30→09:58)
[2022-06-19 01:10] LABS: Bedside Glucose 132 mg/dL (74-106)
[2022-06-19 04:41] LABS: Absolute Lymphocyte Count 0.62 X10^3/uL (0.83-4.51); Absolute Neutrophil Count 17.3 X10^3/uL (2.0-7.7); Basophil# 0.04 X10^3/uL; Basophil% 0.2 % (0-1); Hematocrit 37.9 % (40-54); Hemoglobin 12.6 g/dL (13.0-16.5); Lymphocyte # 0.62 X10^3/ul (0.83-4.51); Mean Corp Hgb Conc 33.2 g/dL (32-36); Mean Corpuscular Hgb 28.9 pg (27.0-32.0); Mean Corpuscular Volume 86.9 fL (80-94); Mean Platelet Vol. 10.2 fl (6.2-12.0); Monocyte# 1.56 X10^3/uL; Monocyte% 7.6 % (0-10); NRBC Flagged by Analyzer 0 % (0-5); Neutrophil # 17.28 X10^3/uL (2.7-7.7); Neutrophil % 84.4 % (47-70); POSITIVE DIFFERENTIAL YES; Platelet Count 316 K/mm3 (150-450); RBC Distribution Width CV 13.7 % (11.6-14.6); RBC Distribution Width SD 43.6 fl (35.1-43.9); Red Blood Count 4.36 M/mm3 (4.6-6.2); White Blood Count 20.5 K/mm3 (4.4-11.0)
[2022-06-19 04:42] LABS: Differential Indicated SCAN CRITERIA MET
[2022-06-19 04:58] LABS: Cholesterol 198 mg/dL (200); High Density Lipoprotein 38 mg/dL; Magnesium 2.2 mg/dL (1.6-2.6); Phosphorus 1.6 mg/dL (2.5-4.9); Triglycerides 202 mg/dL; Very Low Density Lipoprotein 40 mg/dL (5-40)
--- NOTE | 2022-06-19 08:00 | CT_ITS ---
STUDY: CT BRAIN WITHOUT CONTRAST REASON FOR EXAM: Male, 61 years old. Stroke RADIATION DOSAGE (If Supplied By Facility): CTDIvol = ( 47.06 ) mGy, DLP = ( 943.26 ) mGycm TECHNIQUE: Transaxial CT imaging of the brain was performed without administration of intravenous contrast material. Individualized dose optimization techniques were used for this CT. COMPARISON: Comparison is made with prior study dated June 18, 2022. FINDINGS: Normal soft tissue structures. Normal calvarium. There is mild cerebral atrophy with widening of the extra-axial spaces and ventricular dilatation. Since prior study, there has been progressive ischemic changes with decreased attenuation and the surrounding edematous changes involving the right and left cerebellar hemispheres as well as the posterior aspects of both occipital lobes with extension into the medial aspect of the left occipital lobe and left thalamus. There is also evidence of a progressive decreased attenuation in the kyrie. Since prior study, there has been a progression of the ventricular dilatation. Normal brainstem. Normal cerebellum. There is no intracranial hemorrhage. Normal visualized paranasal sinuses. CT/Brain/Head without Contrast IMPRESSION: Progressive edematous changes involving the cerebellum as well as the kyrie and in the occipital lobes and medial aspect of the left occipital lobe and left thalamus with decreased attenuation suggestive of progressive ischemic infarcts. Progressive hydrocephalus. Electronically Signed: Paul Quigley MD at 10:56 EDT ,
[2022-06-19] MEDS: Insulin Lispro 100 UNIT/ML INSULN.PEN SC ×2 (08:07→11:20)
[2022-06-19] MEDS: Enoxaparin 40 MG/0.4 ML Syringe SC (08:08)
[2022-06-19 08:31] LABS: Bedside Glucose 156 mg/dL (74-106)
--- NOTE | 2022-06-19 10:19 | CASEMGMT ---
According to [facility]'s website, the following tertiary facilities are in network: [facility], [facility], [place], [facility], [facility], [facility] and .
--- NOTE | 2022-06-19 10:29 | CASEMGMT ---
GAUTAM CM Readmission Note Previous Admission:? 06/12/22-06/13/22 Diagnosis:? COVID 19 Pneumonia? DC Disposition: Home with?oxygen set up Current Admission? Current Diagnosis: Septic shock, altered mental status Pt presented to ER by squad after pt found unresponsive. Pt last seen by dtr the prior morning. Pt only able to state name. Pt currently is restrained and on 5L oxygen. Pt was dc'd on 06/13 with oxygen set up by [employer] at 2L with exertion. Pt tested positive for COVID on 06/11/22. Pt lives with parents and is I at home prior to hospitalization. SOC to c/s. DC Plan: TBD
--- NOTE | 2022-06-19 10:40 | RAD_ITS ---
STUDY: X-RAY - LUMBAR SPINE REASON FOR EXAM: Male, 61 years old. MRI CLEARANCE -- CHECKING FOR REMAINING STIM LEAD POSTERIOR -- LEAD SEEN ON CT SCAN TECHNIQUE: 2 view(s) of the lumbar spine were obtained. COMPARISON: None FINDINGS: There is straightening of the normal lumbar lordosis. There is a mild dextroscoliosis of the lumbar spine. There is a normal alignment of the vertebrae. There is multilevel endplate spondylosis of the lumbar vertebrae. There is multi-level degenerative disc disease with multi-level disc space narrowing. There is atherosclerotic calcification of the abdominal aorta without a demonstrated aneurysm. Electrodes are seen in the epidural space. RAD/Lumbar Spine 2 or 3 Views IMPRESSION: Degenerative changes of the spine, as detailed above. Electrodes are seen in the epidural space. Electronically Signed: Paul Quigley MD at 12:50 EDT ,
[2022-06-19] MEDS: Acetaminophen 650 MG Suppository RC (11:03)
[2022-06-19] MEDS: Labetalol (Prefilled) 20 MG/4 ML IV (11:05)
[2022-06-19 11:45] LABS: Bedside Glucose 152 mg/dL (74-106)
--- NOTE | 2022-06-19 12:19 | CASEMGMT ---
Social Work SW responding to code blue. No family present at this time. Jennifer Tobar, JOSEPH
--- NOTE | 2022-06-19 12:26 | RAD_ITS ---
STUDY: X-RAY CHEST REASON FOR EXAM: Male, 61 years old. ET tube placement -- NG tube placement TECHNIQUE: Single AP portable view of the chest. COMPARISON: Comparison is made with prior chest radiograph dated June 18, 2022. FINDINGS: An endotracheal tube is in situ. The tip is at 3.3 cm proximal to the shaun. An orogastric tube is seen with the tip just distal to the gastroesophageal junction. Persistent right upper lobe infiltrate with increased markings at the right lung base. Elevation of the right hemidiaphragm. There is no demonstrated pleural abnormality. Normal size heart. Normal mediastinum and keturah. Normal visualized pulmonary arteries. There is atherosclerotic tortuosity of the aortic arch and descending thoracic aorta. Normal visualized thoracic spine. Normal visualized ribs, clavicles, and shoulders. There is no demonstrated abnormality of the visualized soft tissue structures of the upper abdomen. RAD/Chest 1 View (Portable) IMPRESSION: Persistent right upper lobe infiltrate. The tip of the endotracheal tube is at 3.3 cm proximal to the shaun. The tip of the orogastric tube is just distal to the gastroesophageal junction. Electronically Signed: Paul Quigley MD at 12:49 EDT ,
--- NOTE | 2022-06-19 12:57 | CON.PCM.CC_ITS ---
Assessment & Plan Assessment/Plan (1) Acute encephalopathy: PLAN: Plan RECOMMENDATIONS: 1. Continue assist-control mode of mechanical ventilation. Wean FiO2 and PEEP to maintain saturations at or above 90%. 2. Continue empiric antimicrobials. 3. Obtain ABG. 4. Obtain stat neurology consultation. 5. Consider transfer to tertiary care facility, given progressive changes noted on CT head. 6. Avoid sedating medications for now. IMPRESSIONS: 1. Acute hypoxemic respiratory failure The patient was initially admitted to the hospital and placed on antimicrobials over concerns for potential aspiration pneumonia. In addition, the patient was recently hospitalized for COVID-19 pneumonia. The initial reason for his hospitalization was secondary to acute encephalopathy. There was initial concern for acute CVA. However, the patient has a history of chronic pain syndrome and neuropathy, with an implanted pain pump. His toxicology screen was positive for opiates, as well, raising the possibility of polypharmacy is yet a nother contributing etiology. Unfortunately, the patient decompensated from a respiratory perspective on the afternoon of June 19 and required intubation. Plan at this time will include continuation of empiric broad-spectrum antimicrobials. Sputum culture has been sent. Follow-up arterial blood gases pending. 2. Encephalopathy Although there was initial concern for an acute CVA, the patient's initial head imaging did not suggest such an etiology. Given that the patient has a history of chronic pain syndrome with an implanted pain pump, my concern would be for polypharmacy as a contributing etiology. After my initial evaluation of the patient, his pain pump was discontinued. Narcan was ordered. Follow-up head imaging from today demonstrated progressive edematous changes and possible ischemic infarcts, along with hydrocephalus. Therefore, an emergent neurology consultation has been placed. I do not see an indication for a continuous infusion of Narcan, given that the patient is currently intubated and airway protected. Will await final neurology recommendations. However, I do suspect that the patient will likely require transfer to a tertiary care facility, given the cerebral edema noted on his most recent head imaging. 3. Chronic pain syndrome and neuropathy Complicates care, management, recovery and prognosis. Continue to hold all sedating medications. TIME: 37 minutes of critical care time, independent of procedures, was spent addressing the patient's acute hypoxemic respiratory failure, encephalopathy, chronic pain syndrome, review of all data and collaboration with the care team. HPI Consult Data Date of Consult: 06/20/22 HPI Narrative Reason for Consultation: Acute hypoxemic respiratory failure HPI Narrative: The patient is a 61-year-old male, with a history as outlined below, who presented to the emergency department via EMS on the afternoon of June 18 after being found unresponsive. The patient was recently admitted to the hospital in mid June 2022 and treated for COVID-19 pneumonia. The patient became progressively hypoxic and was noted to have right-sided pneumonia as well. The patient was discharged with the remainder of a course of Decadron along with cefdinir. He has an apparent history of chronic pain syndrome and neuropathy. He does have an implanted pain pump. The remainder of his history is unclear, given his current intubation status. On presentation to the emergency department, the patient was initially noted to be afebrile and hemodynamically stable. Laboratory evaluation revealed an elevated white blood cell count to 30,000. Platelet count was elevated at 516,000. Initial ABG demonstrated a pH of 7.4 with a PCO2 of 27 and PO2 of 74. Chemistry profile was notable for a lactate of 7.3 with an ALT of 172 and alkaline phosphatase of 203. Urine analysis was unremarkable. Toxicology screen was positive for opiates and cannabinoids. Initial CT head revealed decreased attenuation in the posterior aspects of both occipital lobes with possible focal rounded decreased attenuation in the anterior aspect of the kyrie. CTA head and neck was unremarkable. Chest x-ray demonstrated an improving right upper lobe infiltrate. According to documentation, there was initial concern for a stroke. Hence the stroke work-up. It appears that the patient was administered supplemental IV fluids and antibiotics. Narcan was not administered. The patient was subsequently admitted to the medical intensive care unit for further management. At approximately 1215 this afternoon, a CODE BLUE was initiated after the patient was noted to be apneic and cyanotic. He was subsequently intubated. According to respiratory therapy, there was copious secretions noted. It also appears that a repeat head CT was completed this morning which demonstrated progressive edematous changes involving the cerebellum, kyrie and occipital lobes suggestive of progressive ischemic infarcts and progressive hydrocephalus. [facility] Medical History COVID Home Medications albuterol sulfate 90 mcg/actuation aerosol inhaler 1 - 2 inh inhalation Q4H PRN Wheezing 06/18/22 [History Last Taken Unknown] cefdinir 300 mg capsule 300 mg PO BID INFECTION 04/18/23 [History Last Taken Unknown] dexamethasone 4 mg tablet 6 mg PO DAILY BREATHING 06/18/22 [History Last Taken Unknown] hydromorphone 2 mg tablet 2 mg PO Q6H PRN Pain 06/18/22 [History Last Taken Unknown] meloxicam 15 mg tablet 15 mg PO DAILY PAIN 06/18/22 [History Last Taken Unknown] pregabalin 300 mg capsule 300 mg PO BID PAIN 06/18/22 [History Last Taken Unknown] Allergy/AdvReac Type Severity Reaction Status Date / Time levofloxacin Allergy Other Verified 06/18/22 12:59 Family History unable to obtain Surgical History unable to obtain Social History Smoking Status: Former smoker ROS Review of Systems ROS Unobtainable: due to mental status Physical Exam Const Constitutional Narrative: Intubated and mechanically ventilated. No sedation. The patient is unresponsive. HEENT normocephalic and head/scalp atraumatic Mouth: endotracheal tube in place and OG tube in place Eyes no scleral icterus Neck supple General: trachea midline Chest inspection of chest normal Resp Auscultation: Negative for rales, rhonchi or wheezes Cardio regular rate and regular rhythm GI normal to inspection, nondistended, normoactive bowel sounds Extremity no clubbing, cyanosis or edema Skin no rashes or lesions noted Neuro Neuro Narrative: The patient is not currently responsive to noxious or verbal stimuli. He is not currently on any form of sedation. Lab / Micro Data Result Diagrams: 06/19/22 04:30 06/18/22 10:50 Labs: Laboratory Results - last 24 hr 06/18/22 15:25: Lactic Acid 3.2 H* 06/18/22 16:00: Troponin I High Sens 61 06/18/22 17:16: POC Glucose 125 H 06/19/22 00:20: POC Glucose 132 H 06/19/22 04:30: WBC 20.5 H, RBC 4.36 L, Hgb 12.6 L, Hct 37.9 L, MCV 86.9, MCH 28.9, MCHC 33.2, RDW Std Deviation 43.6, RDW Coeff of Francisco 13.7, Plt Count 316, MPV 10.2, Immature Gran % (Auto) 4.800 H, Neut % (Auto) 84.4 H, Lymph % (Auto) 3.0 L, [place] % (Auto) 7.6, Eos % (Auto) 0.0, Baso % (Auto) 0.2, Absolute Neuts (auto) 17.3 H, Absolute Lymphs (auto) 0.62 L, Nucleated RBC % 0, Diff Path Review July06/19/22 04:30: Phosphorus 1.6 L, Magnesium 2.2, Triglycerides 202 H, Cholesterol 198, LDL Cholesterol 120, VLDL Cholesterol 40, HDL Cholesterol 38 L 06/19/22 08:06: POC Glucose 156 H 06/19/22 11:20: POC Glucose 152 H Micro: Microbiology 06/18/22 11:20 Urine Catheter - Catheter Urine Culture - Preliminary Culture exhibits no growth. Radiology Impression Head/Neck CTA 06/18/22 11:57 IMPRESSION: Normal CTA Head and neck with contrast. Electronically Signed: Paul Quigley MD at 12:48 EDT , Brain CT 06/19/22 08:00 IMPRESSION: Progressive edematous changes involving the cerebellum as well as the kyrie and in the occipital lobes and medial aspect of the left occipital lobe and left thalamus with decreased attenuation suggestive of progressive ischemic infarcts. Progressive hydrocephalus. Electronically Signed: Paul Quigley MD at 10:56 EDT , Lumbar Spine X-Ray 06/19/22 10:40 IMPRESSION: Degenerative changes of the spine, as detailed above. Electrodes are seen in the epidural space. Electronically Signed: Paul Quigley MD at 12:50 EDT , Chest X-Ray 06/19/22 12:26 IMPRESSION: Persistent right upper lobe infiltrate. The tip of the endotracheal tube is at 3.3 cm proximal to the shaun. The tip of the orogastric tube is just distal to the gastroesophageal junction. Electronically Signed: Paul Quigley MD at 12:49 EDT , Charges/Coding Procedures Hospitalists Procedures: [id number] [facility]
[2022-06-19 13:25] LABS: Allen Test Positive; Base Excess -1 mmol/L (-2 to +2); Bicarbonate 23.7 mmol/L (22-26); Blood Gas Specimen Type ART; FI02 100; Mode AC; O2 Delivery Device Adult Vent; PEEP 5; PO2 309 mmHG (75-100); RR 14; SITE L Radial; SO2 100 % (95-99); Total Carbon Dioxide 25 mmol/L; Vt 450; pCO2 35.7 mmHg (35-45); pH 7.43 (7.35-7.45)
--- NOTE | 2022-06-19 13:25 | CHAPLAIN ---
Type of Pastoral Visit ___ Initial Visit ___ Follow-up Visit ___ On-call Visit ___ General Patient Visit ___ Spiritual Assessment ___ Family Conference ___ Bereavement ___ Rapid Response _x__ Code Blue ___ Other (describe below) Pastoral Care Referral From ___ Patient ___ Family ___ Nurse ___ Physician ___ Injection Molding Engineer ___ Bottle Washing Machine Operator _x__ Other (describe below) Sacrament/Intervention ___ Active listening ___ Anointing ___ Islam ___ Bereavement ___ Communion ___ [place] exploration ___ ___ Life review _x__ Prayer ___ Reconciliation ___ Sacrament of Sick _x__ Supportive presence ___ Wedding ___ Other (describe below) Pastoral Comments response to code blue; no family is present; waited in hallway as patient was revived; waited to check ongoing status and available as needed for staff and patient; no family members were available later either; will continue to be available as needed
--- NOTE | 2022-06-19 13:53 | NURSING ---
[facility] notified of intubation and absence of brain stem reflexes.
[2022-06-19] MEDS: 0.9% Normal Saline 1,000 ML 999 ML IV (14:29)
--- NOTE | 2022-06-19 14:38 | DS.PCM_ITS ---
Providers Date of Admission: 06/18/22 Date of Discharge: 06/19/22 Primary Care Physician: Dr. Juice Garcia MD Consultations 06/19/22 12:24 Consult: Skilled Helper / Pulmonary Medicine Routine Consulting Provider: Pulmonary Medicine lauren Pierron Reason for Consult: acute pulmonary arrest EMERGENT Consult: No MD Notified: Yes Date Notified: 06/19/22 Time Notified: 12:25 Method of Notification: Text Reason For Visit: SEPTIC SHOCK, ALTERED MENTALS Diagnosis Discharge Diagnosis (1) Acute encephalopathy: Status: Acute Code(s): G93.40 - Encephalopathy, unspecified Medications at Discharge Home Medications albuterol sulfate 90 mcg/actuation aerosol inhaler 1 - 2 inh inhalation Q4H PRN Wheezing 06/18/22 cefdinir 300 mg capsule 300 mg PO BID INFECTION 06/18/22 dexamethasone 4 mg tablet 6 mg PO DAILY BREATHING 06/18/22 hydromorphone 2 mg tablet 2 mg PO Q6H PRN Pain 06/18/22 meloxicam 15 mg tablet 15 mg PO DAILY PAIN 06/18/22 pregabalin 300 mg capsule 300 mg PO BID PAIN 06/18/22 Hospital Course Operations None Procedures None Summary of Care Provided Minutes Spent on Discharge: 75 Hospital Course: Patient is a 61-year-old male with a past medical history as outlined including chronic pain with a pain pump in place. He had recently been admitted in the hospital about a week prior to this admission for COVID-19 pneumonia and respiratory failure. He was discharged on supplemental oxygen. He was found down on the morning of admission and could not be revived. When EMS found him he was poorly responsive and could see only a few words. Sister said patient ke pt him collapsing back down so she called the EMS and he was brought into the ED. In the ED he was very encephalopathic and nonverbal. [place] Coma Scale was 9 out of 15. His white cell count was markedly elevated at 30.5. CT of the brain showed decreased attenuation in the posterior aspects of both occipital lobes with possible focal rounded decreased attenuation in the anterior aspect of the kyrie. Chest x-ray showed improved aeration of the right upper lobe pulmonary infiltrates which are from his previous admission. He was admitted and managed for acute encephalopathy to rule out a stroke. He was also placed on broad-spectrum antibiotics in light of markedly elevated white cell count. Neurology was consulted and recommended MRI of the brain and EEG. Patient continued to remain very lethargic and encephalopathic. On 06/19/2022, he went into pulmonary arrest where he was found blue and has stopped breathing. He still however had a pulse. He was emergently intubated. Repeat CT brain on 06/19/2022 showed progressive edematous changes and possible ischemic infarct as well as hydrocephalus. Patient was started on Narcan drip but this was discontinued. Due to the imaging findings, patient emergently transferred to [facility] neuro critical care unit for evaluation by neurosurgery. Neurology was again emergently consulted before he was discharged neurology reviewed patient and was in agreement with patient being transferred. Patient was emergently transferred to [facility] on 06/19/2022. Physical Exam Const Constitutional Narrative: patient intubated, RASS score is -4, though he is not on any sedatives or paralytics. HEENT normocephalic and head/scalp atraumatic Eyes Eyes Narrative: pupils dilated Neck no lymphadenopathy Resp Resp Narrative: bilateral coarse crackles. Intubated. GI normal to inspection, nondistended, normoactive bowel sounds, soft to palpation and non-tender Skin no rashes or lesions noted Neuro Neuro Narrative: intubated, not on sedatives, RASS score is -4 Weight / BMI Weight Weight: 202 lb 6.396 oz Body Mass Index (BMI) 29.0 ABG / Lab / Microbiology Data Result Diagrams: 06/19/22 04:30 06/18/22 10:50 Laboratory: Laboratory Results - last 24 hr 06/18/22 15:25: Lactic Acid 3.2 H* 06/18/22 16:00: Troponin I High Sens 61 06/18/22 17:16: POC Glucose 125 H 06/19/22 00:20: POC Glucose 132 H 06/19/22 04:30: WBC 20.5 H, RBC 4.36 L, Hgb 12.6 L, Hct 37.9 L, MCV 86.9, MCH 28.9, MCHC 33.2, RDW Std Deviation 43.6, RDW Coeff of Francisco 13.7, Plt Count 316, MPV 10.2, Immature Gran % (Auto) 4.800 H, Neut % (Auto) 84.4 H, Lymph % (Auto) 3.0 L, [place] % (Auto) 7.6, Eos % (Auto) 0.0, Baso % (Auto) 0.2, Absolute Neuts (auto) 17.3 H, Absolute Lymphs (auto) 0.62 L, Nucleated RBC % 0, Diff Path Review July06/19/22 04:30: Phosphorus 1.6 L, Magnesium 2.2, Triglycerides 202 H, Cholesterol 198, LDL Cholesterol 120, VLDL Cholesterol 40, HDL Cholesterol 38 L 06/19/22 08:06: POC Glucose 156 H 06/19/22 11:20: POC Glucose 152 H Microbiology: Microbiology 06/18/22 11:20 Urine Catheter - Catheter Urine Culture - Preliminary Culture exhibits no growth. ABG: ABG 06/19/22 13:17 Specimen Type ART Sample Site L Radial pH 7.43 Bicarbonate Actual 23.7 Total CO2 25 Base Excess -1 O2 Saturation 100 H O2 % 100 ABG pCO2 35.7 ABG pO2 309 H* Jaiden Test Positive Respiration Rate 14 O2 Delivery Device Adult Vent Vent Mode AC Tidal Volume 450 POC PEEP 5 Crit Call To/Read Back Yes Blood Gas Notified Whom BROWN Radiography Diagnostic Testing: Radiology Impression Brain CT 06/19/22 08:00 IMPRESSION: Progressive edematous changes involving the cerebellum as well as the kyrie and in the occipital lobes and medial aspect of the left occipital lobe and left thalamus with decreased attenuation suggestive of progressive ischemic infarcts. Progressive hydrocephalus. Electronically Signed: Paul Quigley MD at 10:56 EDT , Lumbar Spine X-Ray 06/19/22 10:40 IMPRESSION: Degenerative changes of the spine, as detailed above. Electrodes are seen in the epidural space. Electronically Signed: Paul Quigley MD at 12:50 EDT , Chest X-Ray 06/19/22 12:26 IMPRESSION: Persistent right upper lobe infiltrate. The tip of the endotracheal tube is at 3.3 cm proximal to the shaun. The tip of the orogastric tube is just distal to the gastroesophageal junction. Electronically Signed: Paul Quigley MD at 12:49 EDT , Meaningful Use Info Meaningful Use Diagnoses (Choose all that apply): None applicable Discharge Plan Admission Admit Date/Time: 06/18/22 15:13 Attending Provider: Kathrine Bustillos Primary Care Provider: Juice Garcia Consulting Providers: Dwight Bustillos ; Geoffrey Mota ; [place] ; Nelson Rodriguez ; Maged Thurman ; Jaz Patel [employer] MEDIA INTERN Discharge Orders/Prescriptions Prescriptions: No Action meloxicam 15 mg tablet 15 mg PO DAILY hydromorphone 2 mg tablet 2 mg PO Q6H PRN (Reason: Pain) dexamethasone 4 mg tablet 6 mg PO DAILY albuterol sulfate 90 mcg/actuation HFA aerosol inhaler 1 - 2 inh INHALATION Q4H PRN (Reason: Wheezing) pregabalin 300 mg capsule 300 mg PO BID cefdinir 300 mg capsule 300 mg PO BID Label Comments: TAKE 1 CAPSULE BY MOUTH 2MTIMES A DAY FOR 5 DAYS Referrals / Follow Up: Juice Garcia MD [Primary Care Provider] - Care Physician,No Primary [Non-Staff] - Disposition Disposition (needs filled in before D/C Order can be placed): Acute Care Hospital Charges/Coding Visit Charges Inpatient E&M: 39550 Disch Hosp >30min
--- NOTE | 2022-06-19 14:53 | PRO.PCM_ITS ---
Assessment & Plan Assessment/Plan (1) Respiratory arrest: PLAN: Plan CODE MADISYN was called for respiratory arrest. Patient was evaluated by nursing and the patient was noted to have respiratory arrest. Patient had a pulse as well as a rhythm. Patient was unresponsive upon arrival. Patient was being bagged mast upon my arrival with normal oxygen saturations. Decision was made to intubate the patient. Patient was successfully intubated without sedation. Procedure Report Date of Procedure: 06/19/22 Procedure: Endotracheal intubation Indication was for respiratory failure and inability to protect airway Sedation: None required as patient was not able to protect his airway. Procedure: Using the glide scope, the larynx was visualized with copious secretions overlying. Secretions were suctioned. And using a 7.5 ET tube it was advanced to 23 cm at the lips. Patient had audible breath sounds auscultated bilaterally with color change on the capnography. Follow-up chest x-ray showed the ET tube above the shaun. Bilateral i nfiltrates more prominent on the right. Procedures Hospitalists Procedures: [id number] Insert Emergency Airway
--- NOTE | 2022-06-19 16:42 | NURSING ---
Life flight at bedside to transport patient to [facility]. Report given at bedside and patient transferred to Life flight stretcher.Patient remained on levophed and 3% Saline infusions as patient was transported out to helicopter. Report called to [facility]. Pt family at bedside, tearful but verbalizes understanding of transfer process and verbalizes no further needs from [facility] staff.
[2022-06-20 09:55] LABS: Pathologist Review Reviewed
[2022-06-20 09:57] LABS: Pathologist Review Reviewed
== END 2022-06-19 16:25 | disposition short-term general hospital (02) | DRG 871 ==
LOC: ED 12:52 → ICU 15:52
PROVIDERS: Admitting Provider Internal Medicine; Emergency Provider Student in an Organized Health Care Education/Training Program; PCP Family Medicine; Visit Provider Student in an Organized Health Care Education/Training Program
DX: A41.9 Sepsis, unspecified organism (principal); I63.89 Other cerebral infarction; R09.2 Respiratory arrest; J69.0 Pneumonitis due to inhalation of food and vomit; G91.9 Hydrocephalus, unspecified; G93.40 Encephalopathy, unspecified; R65.20 Severe sepsis without septic shock; G89.4 Chronic pain syndrome; R73.9 Hyperglycemia, unspecified; R94.02 Abnormal brain scan; Z96.82 Presence of neurostimulator; Z79.891 Long term (current) use of opiate analgesic; Z79.899 Other long term (current) drug therapy; Z86.16 Personal history of COVID-19; Z87.891 Personal history of nicotine dependence
CPT/HCPCS: 31500; 31720; 36600; 70450; 70496; 70498; 71045; 72100; 80053; 80061; 80307; 81001; 82077; 82550; 82803; 82962; 83605; 83735; 84100; 84484; 85025; 85610; 87040; 87070; 87086; 87205; 92950; 93005; 93306; 94002; 95819; 97802; 99285; J7030; J7040; J7050; Q9967; A4216